=== PATIENT | female | born 1935 | race Caucasian/White ===

== ENCOUNTER 2016-08-11 14:43 | Inpatient (IN) | payer OTHER, MEDICARE ==
[2016-08-08] MEDS: SODIUM CHLOR 0.9% 1000 ML INJ 1,000 ML IV SCH (21:45)
[2016-08-11] VITALS (17 sets, daily range): BP systolic 77–116; BP diastolic 44–59; PULSE 94–105; RESP 14–30; TEMP 97.5–99.1; O2SAT 91–97
[~2016-08-11] VITALS: Ht 160 cm; Wt 78.4 kg
[~2016-08-11 14:43] MED LIST: ASPI1TAB69 PO; ATEN25TA PO; ATOR20TA15 PO; LEVEMIR SQ; LEVO.075 PO; LISI-519 PO; MAGN500T2 PO; METF1000 PO; OMEP20TA PO; ONDANSETRON HCL 4 MG/2 ML VIAL IV PUSH ONE; PHENYLEPH/NS 1000 MCG/10 ML SYR IV ONE; TRAM50TA PO
--- NOTE | 2016-08-11 14:55 | PD ---
Physical Exam Date Seen by Provider: Aug 11, 2016 Time Seen by Provider: 14:50 Narrative 80 YOWF C/O RUQ PAIN. DR MATHIS TX FOR BILE DUCT OBSTRUCTION. WORSENING SINCE FRIDAY. NO F/C. POS N/V WITH ABDOMINAL PAIN. PMD NYASIA MCCANN VS NOTED AWAITING BED PLACEMENT Data Data Last Documented VS Vital Signs Date Time Temp Pulse Resp B/P Pulse Ox O2 Delivery O2 Flow Rate FiO2 08/11/16 14:46 99.1 105 14 92/53 95 MDM Medical Record Reviewed: Yes Supervised Visit with DAMIEN: Yes Sahil Monson Aug 11, 2016 14:55
[2016-08-11] MEDS ORDERED: SODIUM CHLOR 0.9% 1000 ML INJ 1,000 ML IV ONE ×3 (15:15→16:45)
[2016-08-11] MEDS ORDERED: ONDANSETRON HCL 4 MG/2 ML VIAL IVP ONE (15:15)
[2016-08-11] MEDS ORDERED: SODIUM CHLORIDE 0.9% FLUSH 10 ML FLUSH IV FLUSH PRN (15:15)
--- NOTE | 2016-08-11 15:20 | PD ---
HPI Chief Complaint: Abdominal Pain Time Seen by Provider: 15:05 Travel History International Travel<30 days: No Contact w/Intl Traveler<30days: No Traveled to known affect area: No History of Present Illness HPI This patient complains of abdominal pain. Duration is 3 days. Symptoms are moderately severe. Location of the pain is right upper quadrant. She's had some nausea but no active vomiting or fever or diarrhea. She has history of biliary ductal obstructions requiring stenting. She has had her gallbladder removed about 8 years ago. No alleviating factors. Patient arrives critically ill. She is hypotensive with systolic in the 80s and having a lot of pain. She is jaundiced. PFSH Past Medical History Depression: Yes Heart Rhythm Problems: Yes (HEART SKIPS) Cancer: No Cardiovascular Problems: No High Cholesterol: Yes Diabetes: Yes Endocrine: Yes Genitourinary: No Hepatitis: No Hiatal Hernia: No Immune Disorder: No Musculoskeletal: No Neurologic: No Psychiatric: No Reproductive: No Respiratory: No Thyroid Disease: No Past Surgical History Abdominal Surgery: Yes (APPENDECTOMY, GALLBLADDER) AICD: No Appendectomy: Yes Body Medical Devices: RIGHT PORT Cardiac Surgery: No Cholecystectomy: Yes Ear Surgery: No Endocrine Surgery: No Eye Surgery: No Genitourinary Surgery: No Gynecologic Surgery: Yes (HYSTERECTOMY) Hysterectomy: Yes Joint Replacement: No Oral Surgery: No Pacemaker: No Social History Alcohol Use: No Tobacco Use: No Substance Use: No Allergies-Medications (Allergen,Severity, Reaction): Coded Allergies: Penicillin (Verified Allergy, Mild, 08/11/16) Reported Meds & Prescriptions Reported Meds & Active Scripts Active Reported Tramadol (Tramadol HCl) 50 Mg Tab 50 Mg PO Q8H PRN Synthroid (Levothyroxine Sodium) 75 Mcg Tab 75 Mcg PO DAILY Omeprazole 20 Mg Tab 20 Mg PO DAILY Metformin (Metformin HCl) 1,000 Mg Tab 1,000 Mg PO BIDPC With meals Magnesium Oxide 500 Mg Tab 1,000 Mg PO BID Lisinopril 5 Mg Tab 5 Mg PO DAILY Levemir Inj (Insulin Detemir) 1,000 unit/ 10 ML Vial 10 Units SQ HS Do not mix with any other Insulin. Atorvastatin (Atorvastatin Calcium) 20 Mg Tab 20 Mg PO HS Atenolol 25 Mg Tab 12.5 Mg PO DAILY Aspirin 81 Mg Tabdr 81 Mg PO DAILY Review of Systems General / Constitutional: No: Fever Eyes: No: Visual changes HENT: No: Headaches Cardiovascular: No: Chest Pain or Discomfort Respiratory: No: Shortness of Breath Gastrointestinal: Positive: Nausea, Abdominal Pain Genitourinary: No: Dysuria Musculoskeletal: No: Pain Skin: No Rash Neurologic: No: Weakness Psychiatric: No: Depression Endocrine: No: Polydipsia Hematologic/Lymphatic: No: Easy Bruising Physical Exam Narrative GENERAL: Well-nourished, well-developed patient with abdominal pain . Very hard of hearing SKIN: Focused skin assessment reveals no rash and nodules. Skin is Warm and dry. She looks jaundiced HEAD: Atraumatic. Normocephalic. EYES: Pupils equal and round. Positive scleral icterus. No injection or drainage. ENT: No nasal bleeding or discharge. Mucous membranes pink and moist. NECK: Trachea midline. No JVD. CARDIOVASCULAR: Regular rate and rhythm. No murmur appreciated. RESPIRATORY: No accessory muscle use. Clear to auscultation. Breath sounds equal bilaterally. GASTROINTESTINAL: Abdomen soft, right upper quadrant and epigastrium are tender but no rebound or guarding. Hepatic and splenic margins not palpable. MUSCULOSKELETAL: No obvious deformities. No clubbing. No cyanosis. No edema. NEUROLOGICAL: Awake and alert. No obvious cranial nerve deficits. Motor grossly within normal limits. Normal speech. PSYCHIATRIC: Appropriate mood and affect; insight and judgment normal. Data Data Last Documented VS Vital Signs Date Time Temp Pulse Resp B/P Pulse Ox O2 Delivery O2 Flow Rate FiO2 08/11/16 15:39 94 20 84/59 95 08/11/16 15:30 Room Air 08/11/16 14:46 99.1 Orders Complete Blood Count With Diff (08/11/16 15:13) Comprehensive Metabolic Panel (08/11/16 15:13) Lipase (08/11/16 15:13) Prothrombin Time / Inr (Pt) (08/11/16 15:13) Act Partial Throm Time (Ptt) (08/11/16 15:13) Iv Access Insert/Monitor (08/11/16 15:13) Ecg Monitoring (08/11/16 15:13) Oximetry (08/11/16 15:13) NPO (08/11/16 15:13) Ondansetron Inj (Zofran Inj) (08/11/16 15:15) Sodium Chloride 0.9% Flush (Ns Flush) (08/11/16 15:15) Sodium Chlor 0.9% 1000 Ml Inj (Ns 1000 M (08/11/16 15:15) Gamma Gt (Ggt) (08/11/16 15:32) Sodium Chlor 0.9% 1000 Ml Inj (Ns 1000 M (08/11/16 15:45) Ct Abd/Pel W/O Iv Contrast (08/11/16 15:13) Metronidazole 500 Mg Inj (Flagyl 500 Mg (08/11/16 16:45) Levofloxacin 750 Mg Premix Inj (Levaquin (08/11/16 16:45) Sodium Chlor 0.9% 1000 Ml Inj (Ns 1000 M (08/11/16 16:45) Norepinephrine-Dextrose Drip (Levophed-D (08/11/16 17:15) Terbutaline Inj (Brethine Inj) (08/11/16 17:15) Admit Order (Ed Use Only) (08/11/16 17:12) Labs Laboratory Tests Test 08/11/16 15:10 White Blood Count 14.2 TH/MM3 Red Blood Count 4.11 MIL/MM3 Hemoglobin 11.8 GM/DL Hematocrit 35.2 % Mean Corpuscular Volume 85.6 FL Mean Corpuscular Hemoglobin 28.8 PG Mean Corpuscular Hemoglobin 33.7 % Concent Red Cell Distribution Width 14.3 % Platelet Count 168 TH/MM3 Mean Platelet Volume 9.2 FL Neutrophils (%) (Auto) 93.2 % Lymphocytes (%) (Auto) 3.5 % Monocytes (%) (Auto) 3.2 % Eosinophils (%) (Auto) 0.0 % Basophils (%) (Auto) 0.1 % Neutrophils # (Auto) 13.2 TH/MM3 Lymphocytes # (Auto) 0.5 TH/MM3 Monocytes # (Auto) 0.4 TH/MM3 Eosinophils # (Auto) 0.0 TH/MM3 Basophils # (Auto) 0.0 TH/MM3 CBC Comment AUTO DIFF Differential Total Cells 100 Counted Neutrophils % (Manual) 68 % Band Neutrophils % 21 % Lymphocytes % 2 % Monocytes % 3 % Neutrophils # (Manual) 13.5 TH/MM3 Metamyelocytes 6 % Differential Comment FINAL DIFF MANUAL Toxic Vacuolation PRESENT Platelet Estimate NORMAL Platelet Morphology Comment NORMAL Prothrombin Time 18.1 SEC Prothromb Time International 1.6 RATIO Ratio Activated Partial 32.9 SEC Thromboplast Time Sodium Level 126 MEQ/L Potassium Level 3.3 MEQ/L Chloride Level 88 MEQ/L Carbon Dioxide Level 19.5 MEQ/L Anion Gap 19 MEQ/L Blood Urea Nitrogen 34 MG/DL Creatinine 1.78 MG/DL Estimat Glomerular Filtration 27 ML/MIN Rate Random Glucose 77 MG/DL Calcium Level 7.7 MG/DL Total Bilirubin 5.3 MG/DL Gamma Glutamyl Transpeptidase 706 U/L Aspartate Amino Transf 148 U/L (AST/SGOT) Alanine Aminotransferase 216 U/L (ALT/SGPT) Alkaline Phosphatase 357 U/L Total Protein 6.2 GM/DL Albumin 2.7 GM/DL Lipase 1487 U/L [facility] Medical Decision Making Medical Screen Exam Complete: Yes Emergency Medical Condition: Yes Medical Record Reviewed: Yes Differential Diagnosis Choledocholithiasis, hepatitis, pancreatitis Narrative Course I have reviewed the patient's electronic medical record. She was here in March 2016 for ERCP and stent removal IV placed I gave her IV Zofran and 1 L normal saline IV CBC shows leukocytosis with normal hemoglobin Metabolic profile shows multiple abnormalities including hyponatremia and hypokalemia and renal insufficiency LFTs are abnormal with elevated LFTs including elevated GGT Lipase is elevated Coagulation studies are abnormal with INR 1.6 Patient remained hypotensive after liter so I gave her a second liter bolus and she is still systolic in the 80s after that I gave her IV Flagyl and IV Levaquin given her penicillin allergy Patient is a challenging IV placement and has only one IV so I have placed a triple-lumen CENTRAL VENOUS LINE: The site was prepped with Betadine and sterilely draped. The deep vein was cannulated using normal Seldinger technique. A triple lumen central line was placed in the right internal jugular vein and secured with central line dressing. The site was sterilely dressed. The patient tolerated the procedure well. I reviewed the portable chest x-ray for line placement. I'm giving her a third liter of normal saline IV I'm starting Levophed to maintain a better systolic blood pressure given failure of IV fluid boluses to do so CT scan was done without contrast given her renal insufficiency. That showed some mild colonic thickening but nothing otherwise specific I suspect she has a choledocholithiasis as she's had this 3 times in her past Goes along with her right upper quadrant pain and jaundice and abnormal lab studies Patient is critically ill now on pressor support I paged her GI physician to discuss. I paged with his partner Dr. Mendoza I paged the client customer manager for admission and discussed with Dr. Estrada Critical Care Narrative Aggregate critical care time was 80 minutes. Time to perform other separately billable procedures was not included in the critical care time. My time did not include minutes spent treating any other patients simultaneously or on activities that did not directly contribute to the patient's treatment. The services I provided to this patient were to treat and/or prevent clinically significant deterioration that could result in: Septic shock, cardiopulmonary arrest, obstructive jaundice I provided critical care services requiring my management, as noted below: Chart data review, documentation time, medication orders and management, vital sign assessments/reviewing monitor data, ordering and reviewing lab tests, ordering and interpreting/reviewing x-rays and diagnostic studies, care of the patient and discussion of the patient with the admitting physicians. Diagnosis Primary Impression: Acute cholangitis due to calculus of bile duct with obstruction Additional Impressions: Hypotension Qualified Code: I95.9 - Hypotension, unspecified hypotension type Obstructive jaundice Bryn Augustin MD Aug 11, 2016 15:20
[2016-08-11 15:45] LABS: AUTOMATED NEUTROPHIL # 13.2 TH/MM3 (1.8-7.7); BASOPHIL % 0.1 % (0.0-2.0); HEMATOCRIT 35.2 % (35.0-46.0); LYMPH % 3.5 % (9.0-44.0); LYMPHOCYTE # 0.5 TH/MM3 (1.0-4.8); MEAN CELL VOLUME 85.6 FL (80.0-100.0); MEAN CORPUSCULAR HEMOGLOBIN 28.8 PG (27.0-34.0); MEAN CORPUSCULAR HGB CONC 33.7 % (32.0-36.0); MONO % 3.2 % (0.0-8.0); NEUT % 93.2 % (16.0-70.0); PLATELET COUNT 168 TH/MM3 (150-450); RED BLOOD COUNT 4.11 MIL/MM3 (4.00-5.30); RED CELL DISTRIBUTION WIDTH 14.3 % (11.6-17.2); WHITE BLOOD COUNT 14.2 TH/MM3 (4.0-11.0)
[2016-08-11 15:52] LABS: HEMO FLAGS AUTO DIFF
[2016-08-11 15:54] LABS: ALT (GPT) 216 U/L (10-53); ANION GAP 19 MEQ/L (5-15); AST (GOT) 148 U/L (15-37); BICARBONATE 19.5 MEQ/L (21.0-32.0); BLOOD UREA NITROGEN 34 MG/DL (7-18); CHLORIDE 88 MEQ/L (98-107); GLOMERULAR FILTRATION RATE 27 ML/MIN (>89); POTASSIUM 3.3 MEQ/L (3.5-5.1); SODIUM (NA) 126 MEQ/L (136-145)
[2016-08-11 15:56] LABS: ALKALINE PHOSPHATASE 357 U/L (45-117); TOTAL BILIRUBIN ADULT 5.3 MG/DL (0.2-1.0)
[2016-08-11 16:18] LABS: BANDS 21 % (0-6); METAMYELOCYTES 6 % (0-1); NEUTROPHIL # MANUAL DIFF 13.5 TH/MM3 (1.8-7.7); POLYS (SEG NEUTROPHILS) 68 % (16-70); WBC DIFF SAMPLE 100
[2016-08-11 16:19] LABS: PLATELET ESTIMATE SMEAR NORMAL (NORMAL); PLATELET MORPHOLOGY NORMAL (NORMAL); SCAN/DIFF FINAL DIFF MANUAL; TOXIC VACUOLATION PRESENT (NONE SEEN)
[2016-08-11 16:25] LABS: APTT (PATIENT) 32.9 SEC (24.3-30.1); INTERNATIONAL NORMALIZED RATIO 1.6 RATIO; PROTHROMBIN TIME - PATIENT 18.1 SEC (9.8-11.6)
[2016-08-11] MEDS ORDERED: metroNIDAZOLE 500 MG INJ 100 ML IV ONE (16:45)
[2016-08-11] MEDS ORDERED: LEVOFLOXACIN 750 MG PREMIX INJ 150 ML IV ONE (16:45)
--- NOTE | 2016-08-11 16:51 | RADRPT ---
EXAM DATE/TIME: 08/11/2016 16:15 [facility] COMPARISON: No previous studies available for comparison. INDICATIONS : Right lower abdomen pain with nausea, vomiting and diarrhea for three days. ORAL CONTRAST: No oral contrast ingested. RADIATION DOSE: 9.96 CTDIvol (mGy) MEDICAL HISTORY : Hypertension. Gastroesophageal reflux disease. diabetes SURGICAL HISTORY : cholecystectomy, bile duct surgery, hysterectomy, appendectomy ENCOUNTER: Initial ACUITY: 3 days PAIN SCALE: 8/10 LOCATION: Right lower quadrant TECHNIQUE: Volumetric scanning of the abdomen and pelvis was performed. Using automated exposure control and ad justment of the mA and/or kV according to patient size, radiation dose was kept as low as reasonably achievable to obtain optimal diagnostic quality images. FINDINGS: There is minimal thickening of the colon predominantly the right colon with minimal pericolonic fat s tranding most characteristic of a mild colitis. There is no bowel obstruction. A small amount of free fluid is present around the liver. There is linear atelectasis or scarring at the lung bases. No acute findings in the liver, spleen, ad renals, kidneys or pancreas. There is no adenopathy. No acute bony abnormality. CONCLUSION: Mild mural thickening of the colon especially on the right side most characteristic of a mild colitis . Small amount of free fluid around the liver. No free air. Sahil Faria MD on August 11, 2016 at 16:41 Board Certified Radiologist. This report was verified electronically.
[2016-08-11] MEDS ORDERED: TERBUTALINE INJ 1 MG/ML AMP SQ PRN ×2 (17:15→18:45)
[2016-08-11] MEDS ORDERED: NOREPINEPHRINE-DEXTROSE DRIP 250 ML IV SCH ×2 (17:15→18:45)
[2016-08-11] MEDS ORDERED: NOREPINEPHRINE 4 MG/4 ML AMP ONE (17:17)
--- NOTE | 2016-08-11 18:00 | RADRPT ---
EXAM DATE/TIME: 08/11/2016 17:12 [facility] COMPARISON: No previous studies available for comparison. INDICATIONS : Evaluate central line placement MEDICAL HISTORY : Gastroesophageal reflux disease. Hypertension Diabetes mellitus type II. SURGICAL HISTORY : cholecystectomy, bile duct surgery, hysterectomy, appendectomy ENCOUNTER: Initial ACUITY: 1 day PAIN SCORE: 8/10 LOCATION: chest FINDINGS: A single view of the chest demonstrates right central line in right atrium. Minimal basilar atelectas is. No effusion. No pneumothorax. CONCLUSION: 1. Minimal basilar atelectasis. No effusion or pneumothorax. Sahil Faria MD on August 11, 2016 at 17:58 Board Certified Radiologist. This report was verified electronically.
[2016-08-11] MEDS ORDERED: CHLORHEXIDINE GLUCONATE 2 % 1 PACK (2 CLOTHS) TOP PRN (18:45)
[2016-08-11] MEDS ORDERED: MISCELLANEOUS NURSING INFORMATION XX SCH (18:45)
[2016-08-11] MEDS ORDERED: VANCOMYCIN INJ 1,000 MG in SODIUM CHLOR 0.9% 250 ML INJ 250 ML IV ONE (19:00)
[2016-08-11] MEDS ORDERED: DEXTROSE 50% IN WATER 50 ML VIAL(D50) IV PRN (19:15)
[2016-08-11] MEDS ORDERED: GLUCAGON 1 MG/ML VIAL IM/SQ PRN (19:15)
[2016-08-11] MEDS ORDERED: RESP: ALBUTEROL 2.5 MG/IPRATROPIUM 0.5 MG NEB (PRN) NEB (19:15)
[2016-08-11] MEDS ORDERED: VASOPRESSIN INJ 20 UNITS/ML VIAL ONE (19:20)
--- NOTE | 2016-08-11 19:51 | HHI.HP ---
HPI Service Critical Care Medicine Primary Care Physician Rafael Mejia MD Admission Diagnosis cholangitis,choledocholithiasis,persistent hypotension Diagnosis: Chief Complaint: Abdominal pain Travel History International Travel<30 Days: No Contact w/Intl Traveler <30 Da: No Traveled to Known Affected Are: No Sepsis Criteria SIRS Criteria (2 or more): Heart rate over 90, WBC > 16432, < 4000 or > 10% bands Sepsis Criteria (SIRS+source): Infect source susp/known Severe Sepsis (+one): Hypotension Septic Shock Criteria: Unresponsive to 30ml/kg fluid bolus Criteria Outcome: Meets septic shock criteria History of Present Illness HPI 80-year-old female with a past medical history significant for cholecystectomy 8 years ago, recurrent CBD stones/obstruction requiring ERCPs/stenting with stent removal done in March [address] Covington and CBD stone fragments were removed at that time. Patient now presents with abdominal pain going on for about 3 weeks which increased in severity over the last 3 days more so in the right upper quadrant along with nausea vomiting. Patient appeared jaundiced in the ER and was noted to have elevated LFTs and was hypotensive with systolic blood pressure in the 80s. She received 3 L of normal saline bolus and was started on Levophed for pressor support after a right IJ central line was placed by ER physician. She was diagnosed to be septic most likely secondary to cholangitis. She did have an elevated lipase as well. Patient was accepted for admission by critical care medicine service. When I came to evaluate patient around 6:15 PM she was laying in the ER stretcher complaining of significant abdominal pain 10 out of 10 in intensity. She had not received any pain medication so far. She had finished her third liter of normal saline and was on Levophed 2 mics per minute. Levaquin infusion was just getting completed and Flagyl infusion was going to be started next. I ordered fentanyl 50 mics IV started with which she had some relief of her abdominal pain. She has been having bowel movements according to her which are brown in color with no fresh blood or melena noted. History PFSH Past Medical History Depression: Yes Heart Rhythm Problems: Yes (HEART SKIPS) Cancer: No Cardiovascular Problems: No High Cholesterol: Yes Diabetes: Yes Endocrine: Yes Genitourinary: No Hepatitis: No Hiatal Hernia: No Immune Disorder: No Musculoskeletal: No Neurologic: No Psychiatric: No Reproductive: No Respiratory: No Thyroid Disease: No GI/Liver: CBD stones status post multiple ERCPs with stenting and stone removal last one being in March 2016 when her CBD stent was removed and the sweep was performed for a filling defect with removal of CBD stone fragments by Dr. Covington Past Surgical History Abdominal Surgery: Yes (APPENDECTOMY, GALLBLADDER) AICD: No Appendectomy: Yes Body Medical Devices: right port (not present currently) Cardiac Surgery: No Cholecystectomy: Yes Ear Surgery: No Endocrine Surgery: No Eye Surgery: No Genitourinary Surgery: No Gynecologic Surgery: Yes (HYSTERECTOMY) Hysterectomy: Yes Joint Replacement: No Oral Surgery: No Pacemaker: No Social History Alcohol Use: No Tobacco Use: No Substance Use: No Allergies-Medications Allergies-Medications (Allergen,Severity, Reaction): Coded Allergies: Penicillin (Verified Allergy, Mild, 08/11/16) Reported Meds & Prescriptions Reported Meds & Active Scripts Active Reported Tramadol (Tramadol HCl) 50 Mg Tab 50 Mg PO Q8H PRN Synthroid (Levothyroxine Sodium) 75 Mcg Tab 75 Mcg PO DAILY Omeprazole 20 Mg Tab 20 Mg PO DAILY Metformin (Metformin HCl) 1,000 Mg Tab 1,000 Mg PO BIDPC With meals Magnesium Oxide 500 Mg Tab 1,000 Mg PO BID Lisinopril 5 Mg Tab 5 Mg PO DAILY Levemir Inj (Insulin Detemir) 1,000 unit/ 10 ML Vial 10 Units SQ HS Do not mix with any other Insulin. Atorvastatin (Atorvastatin Calcium) 20 Mg Tab 20 Mg PO HS Atenolol 25 Mg Tab 12.5 Mg PO DAILY Aspirin 81 Mg Tabdr 81 Mg PO DAILY ROS Review of Systems General / Constitutional: Positive: Chills, No: Fever Eyes: No: Visual changes HENT: No: Headaches Cardiovascular: No: Chest Pain or Discomfort Respiratory: No: Shortness of Breath Gastrointestinal: Positive: Nausea, Abdominal Pain Genitourinary: No: Dysuria Musculoskeletal: No: Pain Skin: No Rash Neurologic: No: Weakness Psychiatric: No: Depression Endocrine: No: Polydipsia Hematologic/Lymphatic: No: Easy Bruising Physical Exam Vital Signs Vital Signs Date Time Temp Pulse Resp B/P Pulse Ox O2 Delivery O2 Flow Rate FiO2 08/11/16 19:00 104 20 109/55 97 Nasal Cannula 3 08/11/16 17:45 104 20 105/55 96 08/11/16 17:30 104 20 96/55 96 08/11/16 17:15 98 20 90/51 96 Room Air 08/11/16 17:00 95 20 89/59 96 08/11/16 16:30 96 20 88/51 96 08/11/16 16:00 98 87/49 96 08/11/16 15:45 96 20 77/46 93 08/11/16 15:39 94 20 84/59 95 08/11/16 15:30 96 Room Air 08/11/16 14:46 99.1 105 14 92/53 95 Physical Exam Narrative GENERAL: Well-nourished, well-developed patient with abdominal pain . Very hard of hearing SKIN: Focused skin assessment reveals no rash and nodules. Skin is Warm and dry. She looks jaundiced HEAD: Atraumatic. Normocephalic. EYES: Pupils equal and round. Positive scleral icterus. No injection or drainage. ENT: No nasal bleeding or discharge. Mucous membranes pink and moist. NECK: Trachea midline. No JVD. CARDIOVASCULAR: Regular rate and rhythm. No murmur appreciated. RESPIRATORY: No accessory muscle use. Clear to auscultation. Breath sounds equal bilaterally. GASTROINTESTINAL: Abdomen soft, right upper quadrant and epigastrium are tender but no rebound or guarding. Patient also has a tenderness in the lower abdomen without guarding. Hepatic and splenic margins not palpable. MUSCULOSKELETAL: No obvious deformities. No clubbing. No cyanosis. No edema. NEUROLOGICAL: Awake and alert. No obvious cranial nerve deficits. Motor grossly within normal limits. Normal speech. PSYCHIATRIC: Appropriate mood and affect; insight and judgment normal. Laboratory Laboratory Tests Test 08/11/16 15:10 White Blood Count 14.2 Red Blood Count 4.11 Hemoglobin 11.8 Hematocrit 35.2 Mean Corpuscular Volume 85.6 Mean Corpuscular Hemoglobin 28.8 Mean Corpuscular Hemoglobin 33.7 Concent Red Cell Distribution Width 14.3 Platelet Count 168 Mean Platelet Volume 9.2 Neutrophils (%) (Auto) 93.2 Lymphocytes (%) (Auto) 3.5 Monocytes (%) (Auto) 3.2 Eosinophils (%) (Auto) 0.0 Basophils (%) (Auto) 0.1 Neutrophils # (Auto) 13.2 Lymphocytes # (Auto) 0.5 Monocytes # (Auto) 0.4 Eosinophils # (Auto) 0.0 Basophils # (Auto) 0.0 CBC Comment AUTO DIFF Differential Total Cells 100 Counted Neutrophils % (Manual) 68 Band Neutrophils % 21 Lymphocytes % 2 Monocytes % 3 Neutrophils # (Manual) 13.5 Metamyelocytes 6 Differential Comment FINAL DIFF MANUAL Toxic Vacuolation PRESENT Platelet Estimate NORMAL Platelet Morphology Comment NORMAL Prothrombin Time 18.1 Prothromb Time International 1.6 Ratio Activated Partial 32.9 Thromboplast Time Sodium Level 126 Potassium Level 3.3 Chloride Level 88 Carbon Dioxide Level 19.5 Anion Gap 19 Blood Urea Nitrogen 34 Creatinine 1.78 Estimat Glomerular Filtration 27 Rate Random Glucose 77 Calcium Level 7.7 Total Bilirubin 5.3 Gamma Glutamyl Transpeptidase 706 Aspartate Amino Transf 148 (AST/SGOT) Alanine Aminotransferase 216 (ALT/SGPT) Alkaline Phosphatase 357 Total Protein 6.2 Albumin 2.7 Lipase 1487 Result Diagram: 08/11/16 1510 08/11/16 1510 Imaging Last Impressions Abdomen/Pelvis CT 08/11/16 1513 Signed Impressions: Service Date/Time: Thursday, August 11, 2016 16:15 - CONCLUSION: Mild mural thickening of the colon especially on the right side most characteristic of a mild colitis. Small amount of free fluid around the liver. No free air. Sahil Faria MD Chest X-Ray 08/11/16 0000 Signed Impressions: Service Date/Time: Thursday, August 11, 2016 17:12 - CONCLUSION: 1. Minimal basilar atelectasis. No effusion or pneumothorax. 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 Follow neuro status. Cardiovascular: Status post 3 L normal saline. Continue IV fluids. Levophed for pressor support. Lactic acid sepsis protocol ordered by me to trend lactic acid. Pulmonary: Supplemental O2 as needed, bronchodilators when necessary for wheezing. GI/liver: Keep patient nothing by mouth. GI consult Dr. Trejo to decide regarding ERCP and further evaluation of possible colitis. He has already spoken with Dr. Estrada earlier and is aware of the patient. Follow LFTs. Lipase. Renal/: IV hydration, strict intake output, monitor and replete electro lites , follow BUN/creatinine. ID: Continue IV Levaquin and Flagyl. Vancomycin 1 g IV 1 dose. ID consult requested for septic shock suspected cholangitis in this diabetic patient. Heme: Follow CBC and coags. Endocrine: SSI for glycemic control. Resume Synthroid tomorrow if GI clears by mouth intake. Prophylaxis: PPI/SCDs. Hold subcutaneous heparin or Lovenox as patient may be going for ERCP. Code Status full code Discussed Condition With Discussed with Dr. Augustin(ER physician). Discussed current clinical status and plan of care with patient's at bedside who voiced understanding and was agreeable. Dr. Estrada discussed case earlier with Dr. Cam and informed him that patient can undergo ERCP if needed. Condition critical. Time spent on critical care excluding procedures 70 minutes Chandan Fox MD Aug 11, 2016 19:51
[2016-08-11] MEDS: SODIUM CHLOR 0.9% 1000 ML INJ 1,000 ML IV SCH (20:04)
[2016-08-11] MEDS: PANTOPRAZOLE SODIUM 40 MG VIAL IV SCH (20:04)
[2016-08-11] MEDS: SODIUM CHLORIDE 0.9% FLUSH 10 ML FLUSH IV FLUSH SCH (20:06)
[2016-08-11] MEDS: HYDROmorphone HCL PF 1 MG/ML VIAL IV PUSH PRN (20:14)
[2016-08-11] MEDS ORDERED: PROPOFOL 200 MG/20 ML AMP IV ONE (21:45)
--- NOTE | 2016-08-11 22:04 | RADRPT ---
EXAM DATE/TIME: 08/11/2016 20:55 [facility] COMPARISON: GI LAB ERCP, March 19, 2016, 11:28. INDICATIONS : Obstruction. FLUORO TIME: 2 minutes IMAGE COUNT: 3 CONTRAST: Instilled by Ordering Physician MEDICAL HISTORY : None. SURGICAL HISTORY : cholecystectomy, bile duct surgery, hysterectomy, appendectomy ENCOUNTER: Initial ACUITY: 1 day PAIN SCORE: Non-responsive. LOCATION: FINDINGS: An ERCP was performed by the ordering physician. The images demonstrate cannulation of the common bile duct. There is very little contrast to assess f or filling defects on these few images. CONCLUSION: ERCP as above. Sahil Faria MD on August 11, 2016 at 22:02 Board Certified Radiologist. This report was verified electronically.
--- NOTE | 2016-08-11 22:19 | MB ---
cc: AROLDO SIMMONS M.D. DATE OF CONSULTATION 08/11/2016 DATE OF 1935 REASON FOR REFERRAL Pancreatitis, elevated liver function test, possible cholangitis. HISTORY OF THE PRESENT ILLNESS Thank you for the consultation. This is an 80-year-old lady with known history of choledocholithiasis and pancreatitis. She had multiple episodes of stone in the common bile duct requiring ERCP with removal of stones. The patient's last procedure was in March 2016. The patient stated that she had abdominal pain on and off for the last 3 weeks getting worse in the last 3 days and then today she started having severe pain, unbearable in the right upper quadrant radiating to the midepigastric area with some jaundice. The patient denied any vomiting but she had some nausea. The patient came to the emergency room and found to have significant elevation of her liver function tests, and she seems to be septic with low blood pressure, high white blood cells and tachycardia. PAST SURGICAL HISTORY 1. Appendectomy. 2. Cholecystectomy. 3. Hysterectomy. SOCIAL HISTORY Negative for tobacco, drug or alcohol. ALLERGIES PENICILLIN. MEDICATIONS Reviewed in the chart. PAST MEDICAL HISTORY Significant for: 1. Arrhythmia. 2. Depression. 3. High cholesterol. 4. Common bile duct stones in the past, multiple ERCP with stenting and stone removal, the last one 2015. REVIEW OF SYSTEMS All 12-point negative except HPI. PHYSICAL EXAMINATION GENERAL: Alert, oriented with mild distress because of pain. VITAL SIGNS: The patient has low grade temperature 99.1. She has tachycardia and on presentation to the ER she had blood pressure of 84/59, now it is 110/60. HEENT: Pupils are round and reactive to light. She has clear icterus. NECK: Supple. CHEST: Clear to auscultation and percussion. CARDIOVASCULAR: Regular rate and rhythm. No murmur or gallop. ABDOMEN: Severe tenderness with rebound in the right upper quadrant and midepigastric area. Very tender throughout the abdomen. Positive bowel sounds but decreased. I could not appreciate hepatosplenomegaly. EXTREMITIES: No edema, clubbing or cyanosis. NEUROLOGIC: Alert, oriented with normal muscle function. PSYCHOLOGIC: Appropriate but she seems to be a little bit distressed. LABORATORY DATA Sodium 126, potassium 3.3, BUN 34, creatinine 1.78. This is new since last time where her creatinine was 0.6. Calcium 7.7, total bilirubin 5.3, AST 148, ALT 216, alk phos 357, lipase 1487. White count 14.2, hemoglobin 11.8, platelets 168. INR 1.6. IMAGING Abdominal CT scan showed mild mural thickening of the colon mostly on the right side characteristic for mild colitis and small fluid around the liver. No free air. ASSESSMENT/PLAN An 80-year-old lady with what looks like acute cholangitis with possible sepsis, elevated liver function tests, elevated white counts and pancreatitis most likely common bile duct stone induced. I recommend doing an urgent ERCP. We are going to activate the team and do this today. Will intubate the patient. We will start antibiotics. The patient already on pressors to help with her blood pressure. The patient has high risk procedure but we need to do it because of the above. We will follow up with you. Further plan depends on the findings. MD GEORGINA Salazar/ZULMA /8:41 PM /10:08 PM
[2016-08-11] MEDS: INSULIN ASPART SUPPLEMENTAL SCALE SQ SCH (23:08)
[2016-08-11 23:36] LABS: LACTIC ACID GHOST NOT REPORTABLE
[2016-08-12] VITALS (13 sets, daily range): BP systolic 97–130; BP diastolic 45–62; PULSE 84–149; RESP 14–20; TEMP 97.8–98.3; O2SAT 94–96
[2016-08-12 00:06] LABS: BICARBONATE 19.5 MEQ/L (21.0-32.0); CALCIUM-PROTEIN CORRECTED 7.5 MG/DL (8.5-10.1); POTASSIUM 3.6 MEQ/L (3.5-5.1); TOTAL BILIRUBIN ADULT 3.6 MG/DL (0.2-1.0)
[2016-08-12] MEDS: CHLORHEXIDINE GLUCONATE 2 % 1 PACK (2 CLOTHS) TOP SCH (00:19)
[2016-08-12] MEDS: HYDROmorphone HCL PF 1 MG/ML VIAL IV PUSH PRN ×3 (00:19→22:09)
[2016-08-12] MEDS: metroNIDAZOLE 500 MG INJ 100 ML IV SCH ×3 (00:19→17:25)
[2016-08-12 04:41] LABS: AUTOMATED NEUTROPHIL # 16.2 TH/MM3 (1.8-7.7); EOSINOPHIL % 19.1 % (0.0-4.0); HEMATOCRIT 29.1 % (35.0-46.0); LYMPHOCYTE # 0.4 TH/MM3 (1.0-4.8); MEAN CELL VOLUME 85.2 FL (80.0-100.0); MEAN CORPUSCULAR HEMOGLOBIN 29.9 PG (27.0-34.0); MEAN CORPUSCULAR HGB CONC 35.1 % (32.0-36.0); MONO % 2.3 % (0.0-8.0); NEUT % 76.6 % (16.0-70.0); PLATELET COUNT 153 TH/MM3 (150-450); RED BLOOD COUNT 3.42 MIL/MM3 (4.00-5.30); RED CELL DISTRIBUTION WIDTH 14.3 % (11.6-17.2); WHITE BLOOD COUNT 21.2 TH/MM3 (4.0-11.0)
[2016-08-12 04:48] LABS: HEMO FLAGS AUTO DIFF
[2016-08-12 05:07] LABS: CALCIUM-PROTEIN CORRECTED 7.5 MG/DL (8.5-10.1); POTASSIUM 4.1 MEQ/L (3.5-5.1)
[2016-08-12] MEDS: INSULIN ASPART SUPPLEMENTAL SCALE SQ SCH ×4 (06:00→23:42)
[2016-08-12 06:07] LABS: BACTERIA, URINE RARE /hpf; BLOOD, URINE TRACE (NEG); GLUCOSE,URINE NEG (NEG); GRANULAR CAST, URINE 2 /lpf; HYALINE CAST, URINE 1 /lpf (RARE); KETONE, URINE NEG (NEG); MUCUS URINE FEW /lpf (OCC); NITRITE,URINE NEG (NEG); SQUAMOUS EPITHELIAL CELL URINE <1 /hpf (0-5); URINE COLOR YELLOW (YELLW/STRAW)
[2016-08-12 06:09] LABS: COMMENT (UR) CATH-CULTURE IND; CULTURE IF INDICATED CATH CULTURE IND
[2016-08-12 06:55] LABS: BANDS 33 % (0-6); METAMYELOCYTES 2 % (0-1); MYELOCYTES 1 % (0-0); NEUTROPHIL # MANUAL DIFF 20.4 TH/MM3 (1.8-7.7); POLYS (SEG NEUTROPHILS) 60 % (16-70); WBC DIFF SAMPLE 100
[2016-08-12 06:56] LABS: DOHLE BODIES PRESENT (NONE SEEN); TOXIC VACUOLATION PRESENT (NONE SEEN)
[2016-08-12 06:58] LABS: PLATELET ESTIMATE SMEAR NORMAL (NORMAL); PLATELET MORPHOLOGY NORMAL (NORMAL); SCAN/DIFF FINAL DIFF MANUAL
[2016-08-12] MEDS: PANTOPRAZOLE SODIUM 40 MG VIAL IV SCH (08:53)
[2016-08-12] MEDS: SODIUM CHLORIDE 0.9% FLUSH 10 ML FLUSH IV FLUSH SCH ×2 (08:54→22:03)
--- NOTE | 2016-08-12 09:43 | HHI.GIFU ---
Subjective Remarks Resting in bed. States her pain is much improved, but still with significant tenderness on exam. No n/v. Afebrile. Objective Vitals I&O Vital Signs Date Time Temp Pulse Resp B/P Pulse Ox O2 Delivery O2 Flow Rate FiO2 08/12/16 07:00 94 Nasal Cannula 2.00 08/12/16 06:00 88 08/12/16 04:00 91 08/12/16 04:00 98.2 91 15 105/55 96 108/48 08/12/16 02:00 95 Nasal Cannula 3.00 08/12/16 02:00 104 08/12/16 00:00 98.0 104 14 130/62 94 118/45 08/12/16 00:00 104 08/11/16 22:30 97.5 103 30 106/53 91 93/44 08/11/16 22:15 97.6 101 16 94/49 94 Nasal Cannula 3 110/43 08/11/16 22:00 102 16 93/49 94 Nasal Cannula 3 89/45 08/11/16 21:45 102 16 88/42 99 Nasal Cannula 3 100/42 08/11/16 21:35 98.2 109 15 92/46 98 Simple Mask 10 99/44 08/11/16 20:00 101 18 115/59 97 Nasal Cannula 3 08/11/16 19:45 101 18 116/59 97 Nasal Cannula 3 08/11/16 19:30 101 18 110/54 97 Nasal Cannula 3 08/11/16 19:15 104 18 109/54 97 Nasal Cannula 3 08/11/16 19:00 97 Nasal Cannula 3.00 08/11/16 19:00 104 20 109/55 97 Nasal Cannula 3 08/11/16 17:45 104 20 105/55 96 08/11/16 17:30 104 20 96/55 96 08/11/16 17:15 98 20 90/51 96 Room Air 08/11/16 17:00 95 20 89/59 96 08/11/16 16:30 96 20 88/51 96 08/11/16 16:00 98 87/49 96 08/11/16 15:45 96 20 77/46 93 08/11/16 15:39 94 20 84/59 95 08/11/16 15:30 96 Room Air 08/11/16 14:46 99.1 105 14 92/53 95 I/O 08/11/16 08/11/16 08/11/16 08/12/16 08/12/16 08/12/16 07:00 15:00 23:00 07:00 15:00 23:00 Intake Total 1350 ml 1122 ml Output Total 180 ml 550 ml Balance 1170 ml 572 ml Intake Oral 0 ml IV Total 300 ml 1122 ml Other 1050 ml Output Urine Total 175 ml 550 ml Estimated Blood Loss 5 ml Other 0 ml # Bowel Movements 0 Laboratory Laboratory Tests Test 08/11/16 08/11/16 08/11/16 08/11/16 15:10 19:55 22:30 23:15 White Blood Count 14.2 Red Blood Count 4.11 Hemoglobin 11.8 Hematocrit 35.2 Mean Corpuscular Volume 85.6 Mean Corpuscular Hemoglobin 28.8 Mean Corpuscular Hemoglobin 33.7 Concent Red Cell Distribution Width 14.3 Platelet Count 168 Mean Platelet Volume 9.2 Neutrophils (%) (Auto) 93.2 Lymphocytes (%) (Auto) 3.5 Monocytes (%) (Auto) 3.2 Eosinophils (%) (Auto) 0.0 Basophils (%) (Auto) 0.1 Neutrophils # (Auto) 13.2 Lymphocytes # (Auto) 0.5 Monocytes # (Auto) 0.4 Eosinophils # (Auto) 0.0 Basophils # (Auto) 0.0 CBC Comment AUTO DIFF Differential Total Cells 100 Counted Neutrophils % (Manual) 68 Band Neutrophils % 21 Lymphocytes % 2 Monocytes % 3 Neutrophils # (Manual) 13.5 Metamyelocytes 6 Differential Comment FINAL DIFF MANUAL Toxic Vacuolation PRESENT Platelet Estimate NORMAL Platelet Morphology Comment NORMAL Prothrombin Time 18.1 Prothromb Time International 1.6 Ratio Activated Partial 32.9 Thromboplast Time Sodium Level 126 130 Potassium Level 3.3 3.6 Chloride Level 88 96 Carbon Dioxide Level 19.5 19.5 Anion Gap 19 15 Blood Urea Nitrogen 34 32 Creatinine 1.78 1.40 Estimat Glomerular Filtration 27 36 Rate Random Glucose 77 108 Calcium Level 7.7 6.4 Total Bilirubin 5.3 3.6 Gamma Glutamyl Transpeptidase 706 Aspartate Amino Transf 148 91 (AST/SGOT) Alanine Aminotransferase 216 154 (ALT/SGPT) Alkaline Phosphatase 357 199 Total Protein 6.2 4.9 Albumin 2.7 2.1 Lipase 1487 Lactic Acid Level 4.1 Nasal Screen MRSA (PCR) NEGATIVE Protein Corrected Calcium 7.5 Test 08/11/16 08/12/16 08/12/16 23:44 03:22 05:15 Lactic Acid Level 2.7 White Blood Count 21.2 Red Blood Count 3.42 Hemoglobin 10.2 Hematocrit 29.1 Mean Corpuscular Volume 85.2 Mean Corpuscular Hemoglobin 29.9 Mean Corpuscular Hemoglobin 35.1 Concent Red Cell Distribution Width 14.3 Platelet Count 153 Mean Platelet Volume 9.5 Neutrophils (%) (Auto) 76.6 Lymphocytes (%) (Auto) 2.0 Monocytes (%) (Auto) 2.3 Eosinophils (%) (Auto) 19.1 Basophils (%) (Auto) 0.0 Neutrophils # (Auto) 16.2 Lymphocytes # (Auto) 0.4 Monocytes # (Auto) 0.5 Eosinophils # (Auto) 4.0 Basophils # (Auto) 0.0 CBC Comment AUTO DIFF Differential Total Cells 100 Counted Neutrophils % (Manual) 60 Band Neutrophils % 33 Lymphocytes % 2 Monocytes % 2 Neutrophils # (Manual) 20.4 Metamyelocytes 2 Myelocytes 1 Differential Comment FINAL DIFF MANUAL Toxic Vacuolation PRESENT Dohle Bodies PRESENT Platelet Estimate NORMAL Platelet Morphology Comment NORMAL Red Cell Morphology Comment NORMAL Sodium Level 130 Potassium Level 4.1 Chloride Level 97 Carbon Dioxide Level 20.0 Anion Gap 13 Blood Urea Nitrogen 33 Creatinine 1.40 Estimat Glomerular Filtration 36 Rate Random Glucose 128 Calcium Level 6.5 Protein Corrected Calcium 7.5 Total Bilirubin 3.0 Aspartate Amino Transf 78 (AST/SGOT) Alanine Aminotransferase 145 (ALT/SGPT) Alkaline Phosphatase 191 Total Protein 5.0 Albumin 2.1 Lipase 452 Urine Color YELLOW Urine Turbidity HAZY Urine pH 5.0 Urine Specific [place] 1.007 Urine Protein NEG Urine Glucose (UA) NEG Urine Ketones NEG Urine Occult Blood TRACE Urine Nitrite NEG Urine Bilirubin NEG Urine Urobilinogen LESS THAN 2.0 Urine Leukocyte Esterase NEG Urine RBC 1 Urine WBC 3 Urine Squamous Epithelial <1 Cells Urine Amorphous Sediment RARE Urine Bacteria RARE Urine Hyaline Casts 1 Urine Granular Casts 2 Urine Mucus FEW Microscopic Urinalysis Comment CATH-CULTURE IND Date/Time Procedure Status Source Growth 08/12/16 05:15 Urine Culture Received Urine Catheterized Urine Pending 08/11/16 21:58 Aerobic Blood Culture Received Blood Peripheral Pending 08/11/16 21:58 Anaerobic Blood Culture Received Blood Peripheral Pending Imaging Last Impressions Abdomen/Pelvis CT 08/11/16 1513 Signed Impressions: Service Date/Time: Thursday, August 11, 2016 16:15 - CONCLUSION: Mild mural thickening of the colon especially on the right side most characteristic of a mild colitis. Small amount of free fluid around the liver. No free air. Sahil Faria MD GI Procedure 08/11/16 0000 Signed Impressions: Service Date/Time: Thursday, August 11, 2016 20:55 - CONCLUSION: ERCP as above. Sahil Faria MD Chest X-Ray 08/11/16 0000 Signed Impressions: Service Date/Time: Thursday, August 11, 2016 17:12 - CONCLUSION: 1. Minimal basilar atelectasis. No effusion or pneumothorax. Sahil Faria MD Physical Exam HEENT: Normocephalic; atraumatic; no jaundice. CHEST: CTA CARDIAC: RRR, on vasopressors ABDOMEN: Soft, diffuse tenderness on exam, no hepatosplenomegaly; bowel sounds are present in all four quadrants. EXTREMITIES: No clubbing, cyanosis, or edema. SKIN: Normal; no rash; no jaundice. DEALER CARD ROOM: No focal deficits; alert and oriented times three. Assessment and Plan Plan ASSESSMENT: - Cholangitis, Choledocholithiasis. Abdomen/Pelvis CT (08/11/16)----> Mild mural thickening of the colon especially on the right side most characteristic of a mild colitis. Small amount of free fluid around the liver. No free air. S/ P ERCP with sphincterotomy, stone removal, stent placement (08/11/16)----> CBD Dilation, stone, puss, prominent ampulla. WBC went up to 21.2 and LFTs remains elevated, T. Bili 3.0, AST 78, ALT 145, Alk Phosph 191. Lipase improved today 452. Clinically, much improved- although still with diffuse tenderness on exam. Will start clears and repeat CBC, LFT, Lipase in am. Levaquin, Flagyl. - Elevated LFTs secondary to above. S/P ERCP as above. Still high, but clinically improved. Will repeat in am. - Pancreatitis, likely related to choledocholithiasis. Pt with hx of cholecystectomy. S/P ERCP as above. - Sepsis/Leukocytosis. Pt with worsening WBC today. Levaquin, Flagyl. On vasopressors. - ? Colitis, ascending colon on CT. Levaquin, Flagyl. Check stool for CDiff, C /s. - ALKA with electrolyte abnormalities. Per CCM - DM, Hypothyroidism per primary. Per CCM PLAN: - Clear liquids - Cont. Flagyl/Levaquin - Cont. PPI - Cont. IVF - Send stool for CDiff, C/S - CBC, CMP, Lipase in am - Supportive care - Further recommendations to follow based on results of above - Pt seen and examined by Dr. Cam and myself and this note is written on his behalf Massiel Shahid Aug 12, 2016 09:43
[2016-08-12] MEDS: SODIUM CHLOR 0.9% 1000 ML INJ 1,000 ML IV SCH ×2 (11:00→18:25)
--- NOTE | 2016-08-12 14:52 | HHI.CCPN ---
Subjective Remarks/Hospital Course 80-year-old female with a past medical history significant for cholecystectomy 8 years ago, recurrent CBD stones/obstruction requiring ERCPs/stenting with stent removal done in March [address] C[place]ton and CBD stone fragments were removed at that time. Patient now presents with abdominal pain going on for about 3 weeks which increased in severity over the last 3 days more so in the right upper quadrant along with nausea vomiting. Patient appeared jaundiced in the ER and was noted to have elevated LFTs and was hypotensive with systolic blood pressure in the 80s. She received 3 L of normal saline bolus and was started on Levophed for pressor support after a right IJ central line was placed by ER physician. She was diagnosed to be septic most likely secondary to cholangitis. She did have an elevated lipase as well. Patient was accepted for admission by critical care medicine service. When I came to evaluate patient around 6:15 PM she was laying in the ER stretcher complaining of significant abdominal pain 10 out of 10 in intensity. She had not received any pain medication so far. She had finished her third liter of normal saline and was on Levophed 2 mics per minute. Levaquin infusion was just getting completed and Flagyl infusion was going to be started next. I ordered fentanyl 50 mics IV started with which she had some relief of her abdominal pain. She has been having bowel movements according to her which are brown in color with no fresh blood or melena noted. Subjective 08/12: Afebrile.The patient is status post ERCP with sphincterotomy and stone removal last evening and stent placement. Biopsy also obtained for thickened ampulla of Vater to rule out malignant process. Patient's pain well to control this a.m. reports it is 08/12. Objective Vital Signs Date Time Temp Pulse Resp B/P Pulse Ox O2 Delivery O2 Flow Rate FiO2 08/12/16 12:00 98.3 84 16 99/54 96 97/48 08/12/16 07:00 Nasal Cannula 2.00 Intake and Output 08/11/16 08/11/16 08/12/16 08:00 16:00 00:00 Intake Total 1350 ml Output Total 180 ml Balance 1170 ml Result Diagram: 08/12/16 0322 08/12/16 0322 Imaging Last Impressions Abdomen/Pelvis CT 08/11/16 5273 Signed Impressions: Service Date/Time: Thursday, August 11, 2016 16:15 - CONCLUSION: Mild mural thickening of the colon especially on the right side most characteristic of a mild colitis. Small amount of free fluid around the liver. No free air. Sahil Faria MD Chest X-Ray 08/11/16 0000 Signed Impressions: Service Date/Time: Thursday, August 11, 2016 17:12 - CONCLUSION: 1. Minimal basilar atelectasis. No effusion or pneumothorax. Sahil Faria MD Objective Remarks Narrative GENERAL: Well-nourished, well-developed elderly female . Hard of hearing SKIN: Focused skin assessment reveals no rash and nodules. Skin is Warm and dry. She looks jaundiced HEAD: Atraumatic. Normocephalic. EYES: Pupils equal and round. Positive scleral icterus. No injection or drainage. ENT: No nasal bleeding or discharge. Mucous membranes pink and moist. NECK: Trachea midline. No JVD. CARDIOVASCULAR: Regular rate and rhythm. No murmur appreciated. RESPIRATORY: No accessory muscle use. Clear to auscultation. Breath sounds equal bilaterally. GASTROINTESTINAL: Abdomen soft, right upper quadrant and epigastrium are tender but no rebound or guarding. Patient also has a mild tenderness in the lower abdomen without guarding. Hepatic and splenic margins not palpable. MUSCULOSKELETAL: No obvious deformities. No clubbing. No cyanosis. No edema. NEUROLOGICAL: Awake and alert. No obvious cranial nerve deficits. Motor grossly within normal limits. Normal speech. PSYCHIATRIC: Appropriate mood and affect; insight and judgment normal. A/P Assessment and Plan 80-year-old female with: Abdominal pain Cholangitis Choledocholithiasis S/P ERCP with sphincterotomy and stone removal, stent placement Septic shock Acute pancreatitis probably secondary to CBD stones Elevated LFTs Hyperbilirubinemia Possible mild colitis in the ascending colon(based on CT result) Bandemia Leukocytosis Diabetes mellitus AK I History of recurrent CBD stones/obstruction status post previous ERCP and stenting with stent removal in March 2016 History of hypothyroidism Plan: Neuro: Fentanyl when necessary for pain. Follow neuro status. Cardiovascular: Status post 3 L normal saline. Continue IV fluids. Levophed for pressor support. Lactic acid sepsis protocol ordered by me to trend lactic acid. Pulmonary: Supplemental O2 as needed, bronchodilators when necessary for wheezing. GI/liver: Advanced to clear liquid diet. GI consult Dr. Cam following. Follow LFTs, Lipase in a.m., follow-up pathology report Renal/: IV hydration, strict intake output, monitor and replete electrolytes, follow BUN/creatinine. ID: Continue IV Levaquin and Flagyl. Vancomycin 1 g IV 1 dose. ID consulted requested for septic shock suspected cholangitis in this diabetic patient. Heme: Follow CBC and coags. Endocrine: SSI for glycemic control. Resume Synthroid tomorrow if GI clears by mouth intake. Prophylaxis: PPI/SCDs. Resume SQ heparin in a.m. 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
[2016-08-12] MEDS ORDERED: SODIUM CHLORID 0.9% 500 ML INJ 500 ML IV ONE (18:00)
--- NOTE | 2016-08-12 18:56 | PD.ID.CON ---
History of Present Illness Service ID Consult Requested By Dr Fox Reason for Consult acute cholangitis Primary Care Physician Rafael Mejia MD Diagnoses: History of Present Illness 80-year-old female with a past medical history significant for cholecystectomy 8 years ago, recurrent CBD stones/obstruction requiring ERCPs/stenting with stent removal done in March [address] Covington and CBD stone fragments were removed at that time. Patient presented with abdominal pain for 3 weeks in the right upper quadrant with nausea vomiting and jaundice i Pt was hypotensive with systolic blood pressure in the 80s. She received 3 L of normal saline bolus and was started on Levophed Pt was diagnosed with cholangitis and sepsis secondary to it . S/p ERCP and emergent stent placement yday Over next 24 hrs pt improved, levaphed weande down to 3 mcg On NC O2 and afebrile Her lipase elevated, but trending down SHe has substantial leucytosis Review of Systems Except as stated in HPI: all other systems reviewed are Neg Past Family Social History Allergies: Coded Allergies: Penicillin (Verified Allergy, Mild, 08/11/16) Past Medical History Depression, High Cholesterol, Diabetes CBD stones status post multiple ERCPs with stenting and stone removal last one being in March 2016 when her CBD stent was removed and the sweep was performed for a filling defect with removal of CBD stone fragments by Dr. Covington Past Surgical History APPENDECTOMY, Cholecystectomy Hysterectomy Active Ordered Medications Medications where reviewed in EMR Antibiotics Include: levaquin, flagyl Family History Non-Contributory. Social History Alcohol Use: No Tobacco Use: No Substance Use: No Physical Exam Vital Signs Vital Signs Date Time Temp Pulse Resp B/P Pulse Ox O2 Delivery O2 Flow Rate FiO2 08/12/16 18:25 18 08/12/16 18:00 140 08/12/16 16:00 98.0 114 20 108/60 96 106/54 08/12/16 16:00 114 08/12/16 14:00 119 08/12/16 12:00 98.3 84 16 99/54 96 97/48 08/12/16 12:00 109 08/12/16 10:00 96 08/12/16 08:00 88 08/12/16 08:00 96 Nasal Cannula 3.00 08/12/16 08:00 97.9 88 16 106/59 95 111/51 08/12/16 07:00 94 Nasal Cannula 2.00 08/12/16 06:00 88 08/12/16 04:00 91 08/12/16 04:00 98.2 91 15 105/55 96 108/48 08/12/16 02:00 95 Nasal Cannula 3.00 08/12/16 02:00 104 08/12/16 00:00 98.0 104 14 130/62 94 118/45 08/12/16 00:00 104 08/11/16 22:30 97.5 103 30 106/53 91 93/44 08/11/16 22:15 97.6 101 16 94/49 94 Nasal Cannula 3 110/43 08/11/16 22:00 102 16 93/49 94 Nasal Cannula 3 89/45 08/11/16 21:45 102 16 88/42 99 Nasal Cannula 3 100/42 08/11/16 21:35 98.2 109 15 92/46 98 Simple Mask 10 99/44 08/11/16 20:00 101 18 115/59 97 Nasal Cannula 3 08/11/16 19:45 101 18 116/59 97 Nasal Cannula 3 08/11/16 19:30 101 18 110/54 97 Nasal Cannula 3 08/11/16 19:15 104 18 109/54 97 Nasal Cannula 3 08/11/16 19:00 97 Nasal Cannula 3.00 08/11/16 19:00 104 20 109/55 97 Nasal Cannula 3 Physical Exam CONSTITUTIONAL/GENERAL: This is an adequately nourished patient, in no apparent distress. TUBES/LINES/DRAINS: SKIN: No jaundice, rashes, or lesions. Skin temperature appropriate. Not diaphoretic. HEAD: Atraumatic. Normocephalic. EYES: Pupils equal and round and reactive. Extraocular motions intact. No scleral icterus. No injection or drainage. Fundi not examined. ENT: Hearing grossly normal. Nose without bleeding or purulent drainage. oral mucosae moist NECK: Trachea midline. Supple, nontender. . CARDIOVASCULAR: Regular rate and rhythm without murmurs, gallops, or rubs. No JVD. Peripheral pulses symmetric. RESPIRATORY/CHEST: Symmetric, unlabored respirations. Clear to auscultation. Breath sounds equal bilaterally. No wheezes, rales, or rhonchi. GASTROINTESTINAL: Abdomen soft,diffusely markedly tender to palpation in RUQ with ? wo guarding/rebound markedly distended, + tympanic to percussion No hepato-splenomegaly, or palpable masses. No guarding. Bowel sounds present, active GENITOURINARY: Without palpable bladder distension. Ludwig catheter in place. MUSCULOSKELETAL: Extremities without clubbing, cyanosis, or edema. No joint tenderness or effusion noted. No calf tenderness. No mottling or clubbing. LYMPHATICS: No palpable cervical or supraclavicular adenopathy. NEUROLOGICAL: Awake and alert. Motor and sensory grossly within normal limits. Follows commands. Normal speech. Moves all extremities. PSYCHIATRIC: No obvious anxiety/depression. no apparent hallucinations or other psychotic thought process. Laboratory Laboratory Tests Test 08/11/16 08/11/16 08/11/16 08/11/16 19:55 22:30 23:15 23:44 Lactic Acid Level 4.1 2.7 Nasal Screen MRSA (PCR) NEGATIVE Sodium Level 130 Potassium Level 3.6 Chloride Level 96 Carbon Dioxide Level 19.5 Anion Gap 15 Blood Urea Nitrogen 32 Creatinine 1.40 Estimat Glomerular Filtration 36 Rate Random Glucose 108 Calcium Level 6.4 Protein Corrected Calcium 7.5 Total Bilirubin 3.6 Aspartate Amino Transf 91 (AST/SGOT) Alanine Aminotransferase 154 (ALT/SGPT) Alkaline Phosphatase 199 Total Protein 4.9 Albumin 2.1 Test 08/12/16 08/12/16 03:22 05:15 White Blood Count 21.2 Red Blood Count 3.42 Hemoglobin 10.2 Hematocrit 29.1 Mean Corpuscular Volume 85.2 Mean Corpuscular Hemoglobin 29.9 Mean Corpuscular Hemoglobin 35.1 Concent Red Cell Distribution Width 14.3 Platelet Count 153 Mean Platelet Volume 9.5 Neutrophils (%) (Auto) 76.6 Lymphocytes (%) (Auto) 2.0 Monocytes (%) (Auto) 2.3 Eosinophils (%) (Auto) 19.1 Basophils (%) (Auto) 0.0 Neutrophils # (Auto) 16.2 Lymphocytes # (Auto) 0.4 Monocytes # (Auto) 0.5 Eosinophils # (Auto) 4.0 Basophils # (Auto) 0.0 CBC Comment AUTO DIFF Differential Total Cells 100 Counted Neutrophils % (Manual) 60 Band Neutrophils % 33 Lymphocytes % 2 Monocytes % 2 Neutrophils # (Manual) 20.4 Metamyelocytes 2 Myelocytes 1 Differential Comment FINAL DIFF MANUAL Toxic Vacuolation PRESENT Dohle Bodies PRESENT Platelet Estimate NORMAL Platelet Morphology Comment NORMAL Red Cell Morphology Comment NORMAL Sodium Level 130 Potassium Level 4.1 Chloride Level 97 Carbon Dioxide Level 20.0 Anion Gap 13 Blood Urea Nitrogen 33 Creatinine 1.40 Estimat Glomerular Filtration 36 Rate Random Glucose 128 Calcium Level 6.5 Protein Corrected Calcium 7.5 Total Bilirubin 3.0 Aspartate Amino Transf 78 (AST/SGOT) Alanine Aminotransferase 145 (ALT/SGPT) Alkaline Phosphatase 191 Total Protein 5.0 Albumin 2.1 Lipase 452 Urine Color YELLOW Urine Turbidity HAZY Urine pH 5.0 Urine Specific [place] 1.007 Urine Protein NEG Urine Glucose (UA) NEG Urine Ketones NEG Urine Occult Blood TRACE Urine Nitrite NEG Urine Bilirubin NEG Urine Urobilinogen LESS THAN 2.0 Urine Leukocyte Esterase NEG Urine RBC 1 Urine WBC 3 Urine Squamous Epithelial <1 Cells Urine Amorphous Sediment RARE Urine Bacteria RARE Urine Hyaline Casts 1 Urine Granular Casts 2 Urine Mucus FEW Microscopic Urinalysis Comment CATH-CULTURE IND Date/Time Procedure Status Source Growth 08/12/16 05:15 Urine Culture Received Urine Catheterized Urine Pending 08/11/16 21:58 Aerobic Blood Culture Received Blood Peripheral Pending 08/11/16 21:58 Anaerobic Blood Culture Received Blood Peripheral Pending 08/11/16 21:00 Aerobic Blood Culture - Preliminary Resulted Blood Peripheral NO GROWTH IN 1 DAY 08/11/16 21:00 Anaerobic Blood Culture - Preliminary Resulted Blood Peripheral NO GROWTH IN 1 DAY Result Diagram: 08/12/16 0322 08/12/16 0322 Imaging Last Impressions Abdomen/Pelvis CT 08/11/16 1513 Signed Impressions: Service Date/Time: Thursday, August 11, 2016 16:15 - CONCLUSION: Mild mural thickening of the colon especially on the right side most characteristic of a mild colitis. Small amount of free fluid around the liver. No free air. Sahil Faria MD GI Procedure 08/11/16 0000 Signed Impressions: Service Date/Time: Thursday, August 11, 2016 20:55 - CONCLUSION: ERCP as above. Sahil Faria MD Chest X-Ray 08/11/16 0000 Signed Impressions: Service Date/Time: Thursday, August 11, 2016 17:12 - CONCLUSION: 1. Minimal basilar atelectasis. No effusion or pneumothorax. Sahil Faria MD Assessment and Plan Assessment and Plan Cholangitis sp emergent stent placement Sepsis, clinicalyy improved Leukocytosis - 2/2 cholangitis PCN allergy - rash -cont, flagyl - dc levaquin - start cefepime Mar Post MD Aug 12, 2016 18:56
[2016-08-12] MEDS: CEFEPIME INJ 2,000 MG in SODIUM CHLORIDE 0.9% INJ 100 ML IV SCH (23:43)
[2016-08-13] VITALS (13 sets, daily range): BP systolic 91–137; BP diastolic 46–62; PULSE 71–83; RESP 12–16; TEMP 97.5–98.3; O2SAT 92–99
[2016-08-13] MEDS: metroNIDAZOLE 500 MG INJ 100 ML IV SCH ×3 (00:59→16:21)
[2016-08-13] MEDS: SODIUM CHLOR 0.9% 1000 ML INJ 1,000 ML IV SCH ×2 (02:45→12:45)
[2016-08-13] MEDS: CHLORHEXIDINE GLUCONATE 2 % 1 PACK (2 CLOTHS) TOP SCH (03:34)
[2016-08-13] MEDS: HYDROmorphone HCL PF 1 MG/ML VIAL IV PUSH PRN ×4 (03:34→18:29)
[2016-08-13 05:01] LABS: AUTOMATED NEUTROPHIL # 10.7 TH/MM3 (1.8-7.7); BASOPHIL % 0.2 % (0.0-2.0); EOSINOPHIL # 0.4 TH/MM3 (0-0.4); EOSINOPHIL % 3.2 % (0.0-4.0); HEMATOCRIT 27.2 % (35.0-46.0); LYMPH % 5.4 % (9.0-44.0); LYMPHOCYTE # 0.7 TH/MM3 (1.0-4.8); MEAN CELL VOLUME 85.2 FL (80.0-100.0); MEAN CORPUSCULAR HEMOGLOBIN 29.1 PG (27.0-34.0); MEAN CORPUSCULAR HGB CONC 34.2 % (32.0-36.0); MONO % 3.7 % (0.0-8.0); NEUT % 87.5 % (16.0-70.0); PLATELET COUNT 108 TH/MM3 (150-450); RED BLOOD COUNT 3.19 MIL/MM3 (4.00-5.30); RED CELL DISTRIBUTION WIDTH 14.5 % (11.6-17.2); WHITE BLOOD COUNT 12.2 TH/MM3 (4.0-11.0)
[2016-08-13 05:24] LABS: BICARBONATE 18.9 MEQ/L (21.0-32.0); CALCIUM-PROTEIN CORRECTED 7.5 MG/DL (8.5-10.1); POTASSIUM 3.7 MEQ/L (3.5-5.1); TOTAL BILIRUBIN ADULT 0.9 MG/DL (0.2-1.0)
[2016-08-13] MEDS ORDERED: CALCIUM CHLORIDE INJ 1 GM in DEXTROSE 5% IN WATER 100ML INJ 100 ML IV ONE ×2 (05:45)
[2016-08-13] MEDS: INSULIN ASPART SUPPLEMENTAL SCALE SQ SCH ×3 (06:00→18:00)
[2016-08-13] MEDS: MAGNESIUM SULFATE 1 GM PREMIX 100 ML IV SCH ×2 (06:05→06:50)
[2016-08-13] MEDS: LEVOTHYROXINE SODIUM 75 MCG TAB PO SCH (06:09)
[2016-08-13 06:45] LABS: HEMO FLAGS AUTO DIFF
[2016-08-13 06:48] LABS: BANDS 19 % (0-6); NEUTROPHIL # MANUAL DIFF 11.5 TH/MM3 (1.8-7.7); PLATELET ESTIMATE SMEAR LOW (NORMAL); PLATELET MORPHOLOGY NORMAL (NORMAL); POLYS (SEG NEUTROPHILS) 75 % (16-70); SCAN/DIFF FINAL DIFF MANUAL; WBC DIFF SAMPLE 100
[2016-08-13 06:52] LABS: DOHLE BODIES PRESENT (NONE SEEN); TOXIC VACUOLATION PRESENT (NONE SEEN)
[2016-08-13 06:58] LABS: BURR CELLS 1+ (NORMAL)
[2016-08-13] MEDS: SODIUM CHLORIDE 0.9% FLUSH 10 ML FLUSH IV FLUSH SCH ×2 (08:27→21:11)
[2016-08-13] MEDS: SODIUM CHLORIDE 0.9% FLUSH 10 ML FLUSH IV FLUSH PRN ×2 (08:28→12:58)
[2016-08-13] MEDS: HEPARIN SODIUM - SQ 10,000 UNITS/ML VIAL SQ SCH ×2 (08:28→21:00)
[2016-08-13] MEDS: PANTOPRAZOLE SODIUM 40 MG VIAL IV SCH (08:28)
[2016-08-13] MEDS ORDERED: ONDANSETRON HCL 4 MG/2 ML VIAL IV PUSH PRN (08:30)
--- NOTE | 2016-08-13 09:36 | HHI.CCPN ---
Subjective Remarks/Hospital Course 80-year-old female with a past medical history significant for cholecystectomy 8 years ago, recurrent CBD stones/obstruction requiring ERCPs/stenting with stent removal done in March [address] Covington and CBD stone fragments were removed at that time. Patient now presents with abdominal pain going on for about 3 weeks which increased in severity over the last 3 days more so in the right upper quadrant along with nausea vomiting. Patient appeared jaundiced in the ER and was noted to have elevated LFTs and was hypotensive with systolic blood pressure in the 80s. She received 3 L of normal saline bolus and was started on Levophed for pressor support after a right IJ central line was placed by ER physician. She was diagnosed to be septic most likely secondary to cholangitis. She did have an elevated lipase as well. Patient was accepted for admission by critical care medicine service. When I came to evaluate patient around 6:15 PM she was laying in the ER stretcher complaining of significant abdominal pain 10 out of 10 in intensity. She had not received any pain medication so far. She had finished her third liter of normal saline and was on Levophed 2 mics per minute. Levaquin infusion was just getting completed and Flagyl infusion was going to be started next. I ordered fentanyl 50 mics IV started with which she had some relief of her abdominal pain. She has been having bowel movements according to her which are brown in color with no fresh blood or melena noted. Subjective 08/12: Afebrile.The patient is status post ERCP with sphincterotomy and stone removal last evening and stent placement. Biopsy also obtained for thickened ampulla of Vater to rule out malignant process. Patient's pain well to control this a.m. reports it is 08/12. 08/13: Tmax 97.8. No acute events overnight. Patient's diet was advanced to clear liquids yesterday tolerating it. Leukocytosis resolving ID following Dr. Post. Lipase levels normalized this a.m. Objective Vital Signs Date Time Temp Pulse Resp B/P Pulse Ox O2 Delivery O2 Flow Rate FiO2 08/13/16 07:00 95 Nasal Cannula 2.00 08/13/16 06:00 78 08/13/16 04:00 98.2 15 91/54 101/48 Intake and Output 08/12/16 08/12/16 08/13/16 08:00 16:00 00:00 Intake Total 1122 ml 1298 ml 1300 ml Output Total 550 ml 900 ml 750 ml Balance 572 ml 398 ml 550 ml Result Diagram: 08/13/16 0330 08/13/16 0330 Imaging Last Impressions Abdomen/Pelvis CT 08/11/16 1513 Signed Impressions: Service Date/Time: Thursday, August 11, 2016 16:15 - CONCLUSION: Mild mural thickening of the colon especially on the right side most characteristic of a mild colitis. Small amount of free fluid around the liver. No free air. Sahil Faria MD Chest X-Ray 08/11/16 0000 Signed Impressions: Service Date/Time: Thursday, August 11, 2016 17:12 - CONCLUSION: 1. Minimal basilar atelectasis. No effusion or pneumothorax. Sahil Faria MD Objective Remarks Narrative GENERAL: Well-nourished, well-developed elderly female . Hard of hearing in no apparent distress SKIN: Focused skin assessment reveals no rash and nodules. Skin is Warm and dry. She looks jaundiced HEAD: Atraumatic. Normocephalic. EYES: Pupils equal and round. Positive scleral icterus. No injection or drainage. ENT: No nasal bleeding or discharge. Mucous membranes pink and moist. NECK: Trachea midline. No JVD. CARDIOVASCULAR: Regular rate and rhythm. No murmur appreciated. RESPIRATORY: No accessory muscle use. Clear to auscultation. Breath sounds equal bilaterally. GASTROINTESTINAL: Abdomen soft. Patient has a mild tenderness in the lower abdomen without guarding. Hepatic and splenic margins not palpable. MUSCULOSKELETAL: No obvious deformities. No clubbing. No cyanosis. No edema. NEUROLOGICAL: Awake and alert. No obvious cranial nerve deficits. Motor grossly within normal limits. Normal speech. PSYCHIATRIC: Appropriate mood and affect; insight and judgment normal. A/P Assessment and Plan 80-year-old female with: Abdominal pain Cholangitis Choledocholithiasis S/P ERCP with sphincterotomy and stone removal, stent placement Septic shock Acute pancreatitis probably secondary to CBD stones Elevated LFTs Hyperbilirubinemia Possible mild colitis in the ascending colon(based on CT result) Bandemia Leukocytosis Diabetes mellitus AK I History of recurrent CBD stones/obstruction status post previous ERCP and stenting with stent removal in March 2016 History of hypothyroidism Hypomagnesemia Plan: Neuro: Fentanyl when necessary for pain. Follow neuro status. Cardiovascular: Status post 3 L normal saline. Continue IV fluids. Levophed for pressor support. Lactic acid sepsis protocol ordered by me to trend lactic acid. Pulmonary: Supplemental O2 as needed, bronchodilators when necessary for wheezing. Encourage incentive spirometry GI/liver: Clear liquid diet. GI consult Dr. Cam following. Follow LFTs, Lipase WNL 154, follow-up pathology report Renal/: IV hydration, strict intake output, monitor and replete electrolytes, follow BUN/creatinine. ID: Continue IV Levaquin discontinued 08/12. Flagyl and Cefepime (day 2). ID following, Dr. Post. WBC 21->12 today, Bands 21->33->19 today Heme: Follow CBC and coags. Endocrine: SSI for glycemic control. Synthroid 75 mcgs q day. Prophylaxis: PPI/SCDs. SQ heparin 5000u q 12 hr Dispo: Level 3 Discussed with and SOUND SYSTEM INSTALLER at bedside. Plan transfer to [facility] in a.. Physician Daisy Mcgill MD Aug 13, 2016 09:36
[2016-08-13] MEDS ORDERED: BISACODYL 10 MG SUPP RECTAL PRN (09:45)
[2016-08-13] MEDS: CEFEPIME INJ 2,000 MG in SODIUM CHLORIDE 0.9% INJ 100 ML IV SCH (11:28)
--- NOTE | 2016-08-13 11:42 | EKG ---
Date Performed: 08/12/2016 Time Performed: 18:16:28 PTAGE: 80 years EKG: Possible atrial fibrillation with rapid ventricular response Inferior infarct - age undeter mined Possible anterior infarct - age undetermined Lateral ST-T changes may be due to myocardial isch emia Abnormal ECG NO PREVIOUS TRACING DOCTOR: Ricky Prieto Interpretating Date/Time 08/13/2016 11:38:27
--- NOTE | 2016-08-13 12:17 | HHI.GIFU ---
Subjective Remarks Intermittent nausea, no vomiting. Worsening abdominal distention. Pt states last BM was last week- reports this was Friday am. (Massiel Shahid) Objective Vitals I&O Vital Signs Date Time Temp Pulse Resp B/P Pulse Ox O2 Delivery O2 Flow Rate FiO2 08/13/16 10:00 72 08/13/16 08:00 98.1 71 15 137/62 95 130/55 08/13/16 08:00 71 08/13/16 07:00 95 Nasal Cannula 2.00 08/13/16 06:00 78 08/13/16 04:00 79 08/13/16 04:00 98.2 79 15 91/54 94 101/48 08/13/16 02:00 75 08/13/16 00:00 92 Room Air 08/13/16 00:00 97.5 79 16 97/53 92 105/59 08/13/16 00:00 79 08/12/16 22:00 88 08/12/16 21:01 95 Nasal Cannula 1.50 08/12/16 20:00 97.8 89 18 110/56 96 108/55 08/12/16 20:00 89 08/12/16 19:00 96 Nasal Cannula 2.00 08/12/16 18:25 18 08/12/16 18:00 140 08/12/16 16:00 98.0 114 20 108/60 96 106/54 08/12/16 16:00 114 08/12/16 14:00 119 I/O 08/12/16 08/12/16 08/12/16 08/13/16 08/13/16 08/13/16 07:00 15:00 23:00 07:00 15:00 23:00 Intake Total 1122 ml 1298 ml 1300 ml 1008 ml Output Total 550 ml 900 ml 750 ml 500 ml Balance 572 ml 398 ml 550 ml 508 ml Intake Oral 50 ml 50 ml IV Total 1122 ml 1298 ml 1250 ml 958 ml Output Urine Total 550 ml 900 ml 750 ml 500 ml # Bowel Movements 0 0 0 0 Laboratory Laboratory Tests Test 08/13/16 03:30 White Blood Count 12.2 Red Blood Count 3.19 Hemoglobin 9.3 Hematocrit 27.2 Mean Corpuscular Volume 85.2 Mean Corpuscular Hemoglobin 29.1 Mean Corpuscular Hemoglobin 34.2 Concent Red Cell Distribution Width 14.5 Platelet Count 108 Mean Platelet Volume 9.5 Neutrophils (%) (Auto) 87.5 Lymphocytes (%) (Auto) 5.4 Monocytes (%) (Auto) 3.7 Eosinophils (%) (Auto) 3.2 Basophils (%) (Auto) 0.2 Neutrophils # (Auto) 10.7 Lymphocytes # (Auto) 0.7 Monocytes # (Auto) 0.5 Eosinophils # (Auto) 0.4 Basophils # (Auto) 0.0 CBC Comment AUTO DIFF Differential Total Cells 100 Counted Neutrophils % (Manual) 75 Band Neutrophils % 19 Lymphocytes % 2 Monocytes % 4 Neutrophils # (Manual) 11.5 Differential Comment FINAL DIFF MANUAL Toxic Vacuolation PRESENT Dohle Bodies PRESENT Platelet Estimate LOW Platelet Morphology Comment NORMAL Margot Cells 1+ Sodium Level 139 Potassium Level 3.7 Chloride Level 109 Carbon Dioxide Level 18.9 Anion Gap 11 Blood Urea Nitrogen 29 Creatinine 1.14 Estimat Glomerular Filtration 46 Rate Random Glucose 102 Calcium Level 6.4 Protein Corrected Calcium 7.5 Phosphorus Level 2.7 Magnesium Level 1.0 Total Bilirubin 0.9 Aspartate Amino Transf 28 (AST/SGOT) Alanine Aminotransferase 90 (ALT/SGPT) Alkaline Phosphatase 141 Total Protein 4.8 Albumin 1.8 Lipase 154 Date/Time Procedure Status Source Growth 08/12/16 05:15 Urine Culture - Preliminary Resulted Urine Catheterized Urine NO GROWTH IN 24 HOURS. 08/11/16 21:58 Aerobic Blood Culture Received Blood Peripheral Pending 08/11/16 21:58 Anaerobic Blood Culture Received Blood Peripheral Pending 08/11/16 21:00 Aerobic Blood Culture - Preliminary Resulted Blood Peripheral NO GROWTH IN 2 DAYS 08/11/16 21:00 Anaerobic Blood Culture - Preliminary Resulted Blood Peripheral NO GROWTH IN 2 DAYS Imaging Last Impressions Abdomen/Pelvis CT 08/11/16 1513 Signed Impressions: Service Date/Time: Thursday, August 11, 2016 16:15 - CONCLUSION: Mild mural thickening of the colon especially on the right side most characteristic of a mild colitis. Small amount of free fluid around the liver. No free air. Sahil Faria MD GI Procedure 08/11/16 0000 Signed Impressions: Service Date/Time: Thursday, August 11, 2016 20:55 - CONCLUSION: ERCP as above. Sahil Faria MD Chest X-Ray 08/11/16 0000 Signed Impressions: Service Date/Time: Thursday, August 11, 2016 17:12 - CONCLUSION: 1. Minimal basilar atelectasis. No effusion or pneumothorax. Sahil Faria MD Physical Exam HEENT: Normocephalic; atraumatic; no jaundice. CHEST: CTA CARDIAC: RRR ABDOMEN: Distended, diffuse tenderness, hypoactive bowel sounds, no hepatosplenomegaly. EXTREMITIES: No clubbing, cyanosis, or edema. SKIN: Normal; no rash; no jaundice. RESIDENTIAL SUBSTANCE ABUSE COUNSELOR: No focal deficits; alert and oriented times three. (Massiel Shahid [facility]) Assessment and Plan Plan ASSESSMENT: - Cholangitis, Choledocholithiasis. Abdomen/Pelvis CT (08/11/16)----> Mild mural thickening of the colon especially on the right side most characteristic of a mild colitis. Small amount of free fluid around the liver. No free air. S/ P ERCP with sphincterotomy, stone removal, stent placement (08/11/16)----> CBD Dilation, stone, puss, prominent ampulla. Pathology pending from ampulla. LFTs improved. WBC improved. Cefepime, - Elevated LFTs secondary to above. S/P ERCP as above. LFTs improving. - Pancreatitis, likely related to choledocholithiasis. Pt with hx of cholecystectomy. S/P ERCP as above. IMPROVED. - Sepsis/Leukocytosis. Improved. On cefepime. - ? Colitis, ascending colon on CT. Levaquin, Flagyl. Check stool for CDiff, C /s. - ? Ileus/Abdominal distention, worsening. Suspect ileus. Pt with nausea, worsening distention. Pt states last bm was last week, reports that this was Friday am. Will start on reglan, miralax, colace for suspected ileus. Will get KUB and will consider SSE once this has been resulted. - ALKA with electrolyte abnormalities. IMPROVED. Per CCM - DM, Hypothyroidism per primary. Per CCM PLAN: - Clear liquids - KUB now - Reglan 5mg IV q8h - Miralax 17gram po daily - Colace 100mg po BID - Cont. PPI - Cont. IVF - Send stool for CDiff, C/S - Monitor labs - On cefepime - Supportive care - Further recommendations to follow based on results of above - Pt seen and examined by Dr. Cam and myself and this note is written on his behalf (Massiel Shahid) Physician Comments patient was seen and examined, agree with above note, KUB showed ileus, we will see how she is doing in am and possibly repeat KUB. (Christina Cam MD) Massiel Shahid Aug 13, 2016 12:17 Christina Cam MD Aug 13, 2016 17:25
[2016-08-13] MEDS: DOCUSATE SODIUM 100 MG/10 ML UDC PO SCH ×2 (12:44→21:10)
--- NOTE | 2016-08-13 13:01 | RADRPT ---
EXAM DATE/TIME: 08/13/2016 13:31 [facility] COMPARISON: No previous studies available for comparison. INDICATIONS : Abdominal pain. Evaluate for ileus. MEDICAL HISTORY : Hypertension. Gastroesophageal reflux disease. diabetes. SURGICAL HISTORY : Cholecystectomy, bile duct surgery, hysterectomy, appendectomy. ENCOUNTER: Subsequent ACUITY: 3 days PAIN SCORE: 6/10 LOCATION: Abdomen, all quadrant. FINDINGS: There are mildly distended gas-filled loops of small and large bowel which can be seen with an ileus. Degenerative changes of the spine are noted. No abnormal calcifications are seen. CONCLUSION: Ileus pattern suspected. Nehemias Swain MD on August 13, 2016 at 12:59 Board Certified Radiologist. This report was verified electronically.
--- NOTE | 2016-08-13 13:08 | MR ---
cc: AROLDO SIMMONS M.D. DATE 08/11/2016 DATE OF [address] Estrada PROCEDURE ERCP with sphincterotomy, stone removal, biopsy and stent placement. INDICATION 80-year-old lady with multiple previous episodes of ERCP. The patient came with severe abdominal pain, sepsis and pancreatitis. PROCEDURE After informing the patient about the procedure and complications, consent was signed. The patient was intubated after sedation by anesthesia. The patient was placed on her abdomen in the prone position. The scope was placed in the mouth, advanced under video guidance to the second portion of the duodenum. The ampulla was bulging with a significant abnormality. Cannulation was done without any difficulty. Sphincterotomy was done. As soon as I did sphincterotomy, pus started coming out. I swept the duct after doing cholangiogram with minimal pressure. The common bile duct was dilated. I swept the duct with a balloon size 15 with significant sludge and small fragments of stone coming out. After that, I flushed the common bile duct generously and then duct was cleaned with normal saline and then an 8.5 [place] 9 cm stent was placed without any difficulty. A small biopsy from the ampulla was done without immediate complication. FINDINGS 1. EGD, limited exam normal. 2. Ampule enlarged, biopsy was done. 3. Common bile duct dilation with stones and sludge. 4. Stent placed. RECOMMENDATIONS 1. N.p.o. 2. Continue antibiotic 3. Follow-up biopsy 4. May need as an outpatient for evaluation of the ampulla. 5. ERCP in two to three months. The patient was admitted to the ICU. We will continue antibiotic. MD GEORGINA Salazar/ELIDA /9:23 PM /1:02 PM
[2016-08-13] MEDS: METOCLOPRAMIDE HCL 10 MG/2 ML VIAL IV PUSH SCH ×2 (14:49→21:54)
[2016-08-13] MEDS ORDERED: LEVOFLOXACIN 500 MG PREMIX INJ 100 ML IV SCH (15:00)
[2016-08-13] MEDS ORDERED: MAGNESIUM CITRATE SOLN 300 ML BTL PO ONE (18:00)
[2016-08-14] VITALS (14 sets, daily range): BP systolic 91–173; BP diastolic 59–76; PULSE 63–85; RESP 17–22; TEMP 97.6–99.1; O2SAT 93–100
[2016-08-14] MEDS: CEFEPIME INJ 2,000 MG in SODIUM CHLORIDE 0.9% INJ 100 ML IV SCH ×2 (01:36→11:21)
[2016-08-14] MEDS: metroNIDAZOLE 500 MG INJ 100 ML IV SCH ×3 (01:36→17:08)
[2016-08-14] MEDS ORDERED: MORPHINE SULFATE 4 MG/ML INJ IV PUSH ONE (03:30)
[2016-08-14] MEDS ORDERED: FAMOTIDINE 20 MG TAB PO ONE (03:45)
[2016-08-14] MEDS: CHLORHEXIDINE GLUCONATE 2 % 1 PACK (2 CLOTHS) TOP SCH (04:00)
[2016-08-14 04:23] LABS: HEMATOCRIT 27.4 % (35.0-46.0); MEAN CELL VOLUME 85.9 FL (80.0-100.0); MEAN CORPUSCULAR HEMOGLOBIN 29.5 PG (27.0-34.0); MEAN CORPUSCULAR HGB CONC 34.3 % (32.0-36.0); PLATELET COUNT 123 TH/MM3 (150-450); RED BLOOD COUNT 3.19 MIL/MM3 (4.00-5.30); RED CELL DISTRIBUTION WIDTH 14.8 % (11.6-17.2); REVIEW FLAG FINAL; WHITE BLOOD COUNT 10.9 TH/MM3 (4.0-11.0)
[2016-08-14 05:01] LABS: BICARBONATE 21.7 MEQ/L (21.0-32.0); MAGNESIUM 1.8 MG/DL (1.5-2.5); POTASSIUM 3.2 MEQ/L (3.5-5.1)
[2016-08-14 05:16] LABS: CALCIUM-PROTEIN CORRECTED 8.6 MG/DL (8.5-10.1)
[2016-08-14] MEDS ORDERED: POTASSIUM CHLOR 40 MEQ PREMIX 100 ML IV PRN ×2 (05:30)
[2016-08-14] MEDS ORDERED: POTASSIUM CHLOR 20 MEQ PREMIX 100 ML IV PRN ×2 (05:30)
[2016-08-14] MEDS ORDERED: MAGNESIUM SULFATE INJ 2 GM in SODIUM CHLORIDE 0.9% INJ 96 ML IV PRN (05:30)
[2016-08-14] MEDS ORDERED: POTASSIUM PHOSPHATE MONOBASIC 500 MG TAB PO PRN (05:30)
[2016-08-14] MEDS ORDERED: MAGNESIUM OXIDE 400 MG TAB PO PRN (05:30)
[2016-08-14] MEDS ORDERED: SODIUM PHOSPHATE INJ 30 MMOL in SODIUM CHLOR 0.9% 250 ML INJ 240 ML IV PRN (05:30)
[2016-08-14] MEDS ORDERED: POTASSIUM PHOSPHATE INJ 30 MMOL in SODIUM CHLOR 0.9% 250 ML INJ 250 ML IV PRN (05:30)
[2016-08-14] MEDS ORDERED: MAGNESIUM SULFATE INJ 4 GM in SODIUM CHLORIDE 0.9% INJ 92 ML IV PRN (05:30)
[2016-08-14] MEDS ORDERED: POTASSIUM PHOSPHATE MONOBASIC 500 MG TAB PO/TUBE PRN (05:30)
[2016-08-14] MEDS ORDERED: ASPIRIN 81 MG CHEW TAB CHEW ONE (05:30)
[2016-08-14] MEDS: METOCLOPRAMIDE HCL 10 MG/2 ML VIAL IV PUSH SCH ×3 (05:46→21:05)
[2016-08-14] MEDS: LEVOTHYROXINE SODIUM 75 MCG TAB PO SCH (05:46)
[2016-08-14] MEDS: INSULIN ASPART SUPPLEMENTAL SCALE SQ SCH ×4 (05:46→18:00)
--- NOTE | 2016-08-14 05:59 | RADRPT ---
EXAM DATE/TIME: 08/14/2016 03:49 [facility] COMPARISON: ABDOMEN KUB ONLY, August 13, 2016, 13:31. INDICATIONS : Abdomen pain. MEDICAL HISTORY : Hypertension. Gastroesophageal reflux disease. diabetes. SURGICAL HISTORY : Cholecystectomy, bile duct surgery, hysterectomy, appendectomy. ENCOUNTER: Subsequent ACUITY: 1 week PAIN SCORE: Non-responsive. LOCATION: Bilateral abdomen FINDINGS: Supine view of the abdomen was performed. Then the common bile duct again noted. Mild gaseous distent ion of bowel loops again seen. No abnormal masses, calcifications, or organomegaly is seen. Mild dege nerative change in lumbar spine and both hips. CONCLUSION: Mild gaseous distention of multiple bowel loops, unchanged. Renzo Blair MD on August 14, 2016 at 5:56 Board Certified Radiologist. This report was verified electronically.
--- NOTE | 2016-08-14 08:05 | HHI.PR ---
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 Covington and CBD stone fragments were removed at that time. Patient now presents with abdominal pain going on for about 3 weeks which increased in severity over the last 3 days more so in the right upper quadrant along with nausea vomiting. Patient appeared jaundiced in the ER and was noted to have elevated LFTs and was hypotensive with systolic blood pressure in the 80s. She received 3 L of normal saline bolus and was started on Levophed for pressor support after a right IJ central line was placed by ER physician. She was diagnosed to be septic most likely secondary to cholangitis. She did have an elevated lipase as well. Patient was accepted for admission by critical care medicine service. When I came to evaluate patient around 6:15 PM she was laying in the ER stretcher complaining of significant abdominal pain 10 out of 10 in intensity. She had not received any pain medication so far. She had finished her third liter of normal saline and was on Levophed 2 mics per minute. Levaquin infusion was just getting completed and Flagyl infusion was going to be started next. I ordered fentanyl 50 mics IV started with which she had some relief of her abdominal pain. She has been having bowel movements according to her which are brown in color with no fresh blood or melena noted. 08/12: Afebrile.The patient is status post ERCP with sphincterotomy and stone removal last evening and stent placement. Biopsy also obtained for thickened ampulla of Vater to rule out malignant process. Patient's pain well to control this a.m. reports it is 08/12. 08/13: Tmax 97.8. No acute events overnight. Patient's diet was advanced to clear liquids yesterday tolerating it. Leukocytosis resolving ID following Dr. Post. Lipase levels normalized this a.m. Hospitalist Notes: 08/14: Seen in her bedroom, in the presence of her Mr. Miguel Angel Olvera no complaint, no nausea, vomit or diarrhea, discussed also with nurse Surendrahien continue electrolyte replacement and following. Objective Vital Signs Date Time Temp Pulse Resp B/P Pulse Ox O2 Delivery O2 Flow Rate FiO2 08/14/16 06:00 81 08/14/16 04:00 80 08/14/16 04:00 99.1 80 20 148/67 97 120/63 08/14/16 02:00 85 08/14/16 00:00 97.6 76 20 139/65 99 124/63 08/14/16 00:00 76 08/13/16 22:00 83 08/13/16 20:00 98.1 79 16 131/58 96 131/57 08/13/16 20:00 79 08/13/16 19:53 96 Nasal Cannula 2.50 08/13/16 19:00 96 Nasal Cannula 2.00 08/13/16 18:00 80 08/13/16 16:00 98.3 72 12 109/53 99 111/46 08/13/16 16:00 72 08/13/16 14:48 14 08/13/16 14:00 77 08/13/16 12:00 73 08/13/16 12:00 98.0 73 14 109/56 96 116/50 08/13/16 10:00 72 I/O 08/13/16 08/13/16 08/13/16 08/14/16 08/14/16 08/14/16 07:00 15:00 23:00 07:00 15:00 23:00 Intake Total 1008 ml 846 ml 384 ml 471 ml Output Total 500 ml 500 ml 650 ml 850 ml Balance 508 ml 346 ml -266 ml -379 ml Intake Oral 50 ml IV Total 958 ml 846 ml 384 ml 471 ml Output Urine Total 500 ml 500 ml 650 ml 850 ml # Bowel Movements 0 0 1 Result Diagram: 08/14/16 0345 08/14/16 0345 Imaging Last Impressions Abdomen X-Ray 08/14/16 0600 Signed Impressions: Service Date/Time: Sunday, August 14, 2016 03:49 - CONCLUSION: Mild gaseous distention of multiple bowel loops, unchanged. Renzo Blair MD Abdomen/Pelvis CT 08/11/16 1513 Signed Impressions: Service Date/Time: Thursday, August 11, 2016 16:15 - CONCLUSION: Mild mural thickening of the colon especially on the right side most characteristic of a mild colitis. Small amount of free fluid around the liver. No free air. Sahil Faria MD GI Procedure 08/11/16 0000 Signed Impressions: Service Date/Time: Thursday, August 11, 2016 20:55 - CONCLUSION: ERCP as above. Sahil Faria MD Chest X-Ray 08/11/16 0000 Signed Impressions: Service Date/Time: Thursday, August 11, 2016 17:12 - CONCLUSION: 1. Minimal basilar atelectasis. No effusion or pneumothorax. Sahil Faria MD Procedures status post ERCP with Sphincterotomy and stone removal, stent placement Other Results Laboratory Tests Test 08/11/16 08/11/16 08/11/16 08/12/16 15:10 22:30 23:44 03:22 Prothrombin Time 18.1 SEC Prothromb Time International 1.6 RATIO Ratio Activated Partial 32.9 SEC Thromboplast Time Gamma Glutamyl Transpeptidase 706 U/L Nasal Screen MRSA (PCR) NEGATIVE Lactic Acid Level 2.7 mmol/L Metamyelocytes 2 % Myelocytes 1 % Red Cell Morphology Comment NORMAL Test 08/12/16 08/13/16 08/14/16 05:15 03:30 03:45 Urine Color YELLOW Urine Turbidity HAZY Urine pH 5.0 Urine Specific [place] 1.007 Urine Protein NEG mg/dL Urine Glucose (UA) NEG mg/dL Urine Ketones NEG mg/dL Urine Occult Blood TRACE Urine Nitrite NEG Urine Bilirubin NEG Urine Urobilinogen LESS THAN 2.0 MG/DL Urine Leukocyte Esterase NEG Urine RBC 1 /hpf Urine WBC 3 /hpf Urine Squamous Epithelial <1 /hpf Cells Urine Amorphous Sediment RARE Urine Bacteria RARE /hpf Urine Hyaline Casts 1 /lpf Urine Granular Casts 2 /lpf Urine Mucus FEW /lpf Microscopic Urinalysis Comment CATH-CULTURE IND Neutrophils (%) (Auto) 87.5 % Lymphocytes (%) (Auto) 5.4 % Monocytes (%) (Auto) 3.7 % Eosinophils (%) (Auto) 3.2 % Basophils (%) (Auto) 0.2 % Neutrophils # (Auto) 10.7 TH/MM3 Lymphocytes # (Auto) 0.7 TH/MM3 Monocytes # (Auto) 0.5 TH/MM3 Eosinophils # (Auto) 0.4 TH/MM3 Basophils # (Auto) 0.0 TH/MM3 CBC Comment AUTO DIFF Differential Total Cells 100 Counted Neutrophils % (Manual) 75 % Band Neutrophils % 19 % Lymphocytes % 2 % Monocytes % 4 % Neutrophils # (Manual) 11.5 TH/MM3 Differential Comment FINAL DIFF MANUAL Toxic Vacuolation PRESENT Dohle Bodies PRESENT Platelet Estimate LOW Platelet Morphology Comment NORMAL Margot Cells 1+ Total Bilirubin 0.9 MG/DL Aspartate Amino Transf 28 U/L (AST/SGOT) Alanine Aminotransferase 90 U/L (ALT/SGPT) Alkaline Phosphatase 141 U/L Albumin 1.8 GM/DL Lipase 154 U/L White Blood Count 10.9 TH/MM3 Red Blood Count 3.19 MIL/MM3 Hemoglobin 9.4 GM/DL Hematocrit 27.4 % Mean Corpuscular Volume 85.9 FL Mean Corpuscular Hemoglobin 29.5 PG Mean Corpuscular Hemoglobin 34.3 % Concent Red Cell Distribution Width 14.8 % Platelet Count 123 TH/MM3 Mean Platelet Volume 9.0 FL Sodium Level 141 MEQ/L Potassium Level 3.2 MEQ/L Chloride Level 109 MEQ/L Carbon Dioxide Level 21.7 MEQ/L Anion Gap 10 MEQ/L Blood Urea Nitrogen 19 MG/DL Creatinine 0.92 MG/DL Estimat Glomerular Filtration 59 ML/MIN Rate Random Glucose 104 MG/DL Calcium Level 7.3 MG/DL Protein Corrected Calcium 8.6 MG/DL Phosphorus Level 1.3 MG/DL Magnesium Level 1.8 MG/DL Total Creatine Kinase 39 U/L Troponin I 0.16 NG/ML Total Protein 4.8 GM/DL Objective Remarks GENERAL: Well-nourished, well-developed elderly female . Hard of hearing in no apparent distress SKIN: Focused skin assessment reveals no rash and nodules. Skin is Warm and dry. She looks jaundiced HEAD: Atraumatic. Normocephalic. EYES: Pupils equal and round. Positive scleral icterus. No injection or drainage. ENT: No nasal bleeding or discharge. Mucous membranes pink and moist. NECK: Trachea midline. No JVD. CARDIOVASCULAR: Regular rate and rhythm. No murmur appreciated. RESPIRATORY: No accessory muscle use. Clear to auscultation. Breath sounds equal bilaterally. GASTROINTESTINAL: Abdomen soft. Patient has a mild tenderness in the lower abdomen without guarding. Hepatic and splenic margins not palpable. MUSCULOSKELETAL: No obvious deformities. No clubbing. No cyanosis. No edema. NEUROLOGICAL: Awake and alert. No obvious cranial nerve deficits. Motor grossly within normal limits. Normal speech. PSYCHIATRIC: Appropriate mood and affect; insight and judgment normal. Medications and IVs Current Medications Medications (Trade) Dose Ordered Sig/Salvatore Route Start Time Stop Time Status Last Admin (NS 1000 ml Inj) 1,000 ml @ 50 mls/hr Q20H IV 08/11/16 19:00 08/13/16 12:45 (NS Flush) 2 ml UNSCH PRN IV FLUSH 08/11/16 18:45 08/13/16 12:58 (NS Flush) 2 ml BID IV FLUSH 08/11/16 21:00 08/13/16 21:11 Pantoprazole Sodium 40 mg 40 mg DAILY IV 08/11/16 18:45 08/13/16 08:28 (Flagyl 500 Mg Inj) 100 ml @ 100 mls/hr Q8H IV 08/12/16 01:00 08/14/16 01:36 Miscellaneous Information 1 Q361D XX 08/11/16 18:45 (Chlorhexidine 2% Cloth) 3 pack Taper DAILY@04 TOP 08/12/16 04:00 08/08/17 03:59 08/14/16 04:00 (Chlorhexidine 2% Cloth) 3 pack UNSCH PRN TOP 08/11/16 18:45 (Brethine Inj) 1 mg UNSCH PRN SQ 08/11/16 18:45 (NovoLOG SUPPLEMENTAL SCALE) 1 Q6HR SQ 08/12/16 00:00 (D50w (Vial) Inj) 25 ml UNSCH PRN IV 08/11/16 19:15 (Glucagon Inj) 1 mg UNSCH PRN IM/SQ 08/11/16 19:15 (Dilaudid Pf Inj) 0.5 mg Q4H PRN IV PUSH 08/11/16 20:15 08/13/16 18:29 (fentaNYL INJ) 50 mcg Q4H PRN IV PUSH 08/11/16 20:10 08/12/16 17:50 (Heparin Inj) 5,000 units Q12HR SQ 08/13/16 09:00 08/13/16 08:28 Levothyroxine Sodium 75 mcg 75 mcg DAILY@06 PO 08/13/16 06:00 08/14/16 05:46 (Maxipime Inj/NS Inj) 100 ml @ 200 mls/hr Q12H IV 08/13/16 00:00 08/14/16 01:36 (Zofran Inj) 4 mg Q6H PRN IV PUSH 08/13/16 08:30 08/14/16 03:10 (Dulcolax Supp) 10 mg DAILY PRN RECTAL 08/13/16 09:45 (Reglan Inj) 5 mg Q8HR IV PUSH 08/13/16 14:00 08/14/16 05:46 (Colace Liq) 100 mg Q12HR PO 08/13/16 12:15 08/13/16 21:10 Aspirin 162 mg 162 mg DAILY CHEW 08/15/16 09:00 Potassium Chloride 100 ml @ 50 mls/hr Q2H PRN IV 08/14/16 05:30 Potassium Chloride 100 ml @ 50 mls/hr Q2H PRN IV 08/14/16 05:30 Potassium Chloride 100 ml @ 25 mls/hr UNSCH PRN IV 08/14/16 05:30 Potassium Chloride 100 ml @ 50 mls/hr Q2H PRN IV 08/14/16 05:30 (Magnesium Sulfate Inj/NS Inj) 100 ml @ 50 mls/hr UNSCH PRN IV 08/14/16 05:30 Magnesium Oxide 800 mg 800 mg UNSCH PRN PO 08/14/16 05:30 (Magnesium Sulfate Inj/NS Inj) 100 ml @ 50 mls/hr UNSCH PRN IV 08/14/16 05:30 Potassium Phosphate 2000 mg 2,000 mg Q4H PRN PO 08/14/16 05:30 (Sodium Phosphate Inj/NS 250 ml Inj) 250 ml @ 42 mls/hr UNSCH PRN IV 08/14/16 05:30 Potassium Phosphate 2000 mg 2,000 mg UNSCH PRN PO/TUBE 08/14/16 05:30 (Potassium Phosphate Inj/NS 250 ml Inj) 260 ml @ 42 mls/hr UNSCH PRN IV 08/14/16 05:30 08/14/16 05:53 A/P Assessment and Plan 1. Intractable Abdominal pain Improved. 2. Cholangitis/Choledocholithiasis status post ERCP with Sphincterotomy and stone removal, stent placement History of CBD stones/obstruction status post previous ERCP and stenting with stent removal in March 2016 GI specialist following. stable. 3. Septic shock. Hydration given in ER and Intensive Care Unit, vasopressor given Levophed, ID specialist following on Cefepime and Flagyl, Leukocytosis trending down. 4. Acute Pancreatitis probably secondary to CBD stones Improving. 5. Possible mild colitis in the ascending Colon followed by GI specialist continue antibiotics. 6. DM II continue sliding scale. controlled. 7. Acute Kidney Injury Improved. 8. Hypothyroidism to continue Hormonal replacement 9. electrolyte derangement replaced and following. Potassium level at 16 Hours. Discussed with Patient and her Mr. Miguel Angel Olvera in the room, also nurse Miss Teague present. Prophylaxis: PPI/SCDs. SQ heparin 5000u q 12 hr Discharge Planning Expected in one to two days. Ariel Quijano MD Aug 14, 2016 08:05 ID: Continue IV Levaquin discontinued 08/12. Flagyl and Cefepime (day 2). ID following, Dr. Post. WBC 21->12 today, Bands 21->33->19 today Heme: Follow CBC and coags. Endocrine: SSI for glycemic control. Synthroid 75 mcgs q day. Prophylaxis: PPI/SCDs. SQ heparin 5000u q 12 hr Ariel Quijano MD Aug 14, 2016 08:05
[2016-08-14] MEDS: PANTOPRAZOLE SODIUM 40 MG VIAL IV SCH (08:23)
[2016-08-14] MEDS: HEPARIN SODIUM - SQ 10,000 UNITS/ML VIAL SQ SCH ×2 (08:23→21:04)
[2016-08-14] MEDS: SODIUM CHLORIDE 0.9% FLUSH 10 ML FLUSH IV FLUSH SCH ×2 (08:23→21:05)
[2016-08-14] MEDS: SODIUM CHLOR 0.9% 1000 ML INJ 1,000 ML IV SCH ×2 (08:23→21:27)
[2016-08-14] MEDS: DOCUSATE SODIUM 100 MG/10 ML UDC PO SCH ×2 (09:00→21:00)
--- NOTE | 2016-08-14 10:11 | EKG ---
Date Performed: 08/14/2016 Time Performed: 09:24:11 PTAGE: 80 years EKG: Sinus rhythm WITH MARKED SINUS ARRHYTHMIA MODERATE T-WAVE ABNORMALITY, CONSIDER ANTERIOR ISCHEMIA ABNORMAL ECG PREVIOUS TRACING : 08/14/2016 02.49 DOCTOR: Connor Hutchinson Interpretating Date/Time 08/14/2016 10:09:23
--- NOTE | 2016-08-14 10:29 | EKG ---
Date Performed: 08/14/2016 Time Performed: 02:49:16 PTAGE: 80 years EKG: Atrial fibrillation with rapid ventricular response Possible anterior infarct - age undeter mined Inferior/lateral T wave changes are nonspecific Abnormal ECG NO PREVIOUS TRACING DOCTOR: Connor Hutchinson Interpretating Date/Time 08/14/2016 10:27:46
[2016-08-14] MEDS: MAGNESIUM SULFATE 1 GM PREMIX 100 ML IV SCH ×2 (11:21→12:19)
--- NOTE | 2016-08-14 14:02 | HHI.IDPN ---
Subjective Subjective Remarks doing well afebrile started on clears, tolerates Had 2 liquid BMs Antibiotics cefepime flagyl Allergies: Coded Allergies: Penicillin (Verified Allergy, Mild, 08/11/16) Objective . Vital Signs Date Time Temp Pulse Resp B/P Pulse Ox O2 Delivery O2 Flow Rate FiO2 08/14/16 09:54 99 Nasal Cannula 2.00 08/14/16 07:00 97 Nasal Cannula 2.00 08/14/16 06:00 81 08/14/16 04:00 80 08/14/16 04:00 99.1 80 20 148/67 97 120/63 08/14/16 02:00 85 08/14/16 00:00 97.6 76 20 139/65 99 124/63 08/14/16 00:00 76 08/13/16 22:00 83 08/13/16 20:00 98.1 79 16 131/58 96 131/57 08/13/16 20:00 79 08/13/16 19:53 96 Nasal Cannula 2.50 08/13/16 19:00 96 Nasal Cannula 2.00 08/13/16 18:00 80 08/13/16 16:00 98.3 72 12 109/53 99 111/46 08/13/16 16:00 72 08/13/16 14:48 14 08/13/16 14:00 77 08/13/16 08/13/16 08/14/16 15:00 23:00 07:00 Intake Total 846 ml 384 ml 471 ml Output Total 500 ml 650 ml 850 ml Balance 346 ml -266 ml -379 ml IV Total 846 ml 384 ml 471 ml Output Urine Total 500 ml 650 ml 850 ml # Bowel Movements 0 1 . Laboratory Tests Test 08/13/16 08/14/16 03:30 03:45 White Blood Count 12.2 TH/MM3 10.9 TH/MM3 Red Blood Count 3.19 MIL/MM3 3.19 MIL/MM3 Hemoglobin 9.3 GM/DL 9.4 GM/DL Hematocrit 27.2 % 27.4 % Mean Corpuscular Volume 85.2 FL 85.9 FL Mean Corpuscular Hemoglobin 29.1 PG 29.5 PG Mean Corpuscular Hemoglobin 34.2 % 34.3 % Concent Red Cell Distribution Width 14.5 % 14.8 % Platelet Count 108 TH/MM3 123 TH/MM3 Mean Platelet Volume 9.5 FL 9.0 FL Neutrophils (%) (Auto) 87.5 % Lymphocytes (%) (Auto) 5.4 % Monocytes (%) (Auto) 3.7 % Eosinophils (%) (Auto) 3.2 % Basophils (%) (Auto) 0.2 % Neutrophils # (Auto) 10.7 TH/MM3 Lymphocytes # (Auto) 0.7 TH/MM3 Monocytes # (Auto) 0.5 TH/MM3 Eosinophils # (Auto) 0.4 TH/MM3 Basophils # (Auto) 0.0 TH/MM3 CBC Comment AUTO DIFF Differential Total Cells 100 Counted Neutrophils % (Manual) 75 % Band Neutrophils % 19 % Lymphocytes % 2 % Monocytes % 4 % Neutrophils # (Manual) 11.5 TH/MM3 Differential Comment FINAL DIFF MANUAL Toxic Vacuolation PRESENT Dohle Bodies PRESENT Platelet Estimate LOW Platelet Morphology Comment NORMAL Margot Cells 1+ Laboratory Tests Test 08/13/16 08/14/16 03:30 03:45 Sodium Level 139 MEQ/L 141 MEQ/L Potassium Level 3.7 MEQ/L 3.2 MEQ/L Chloride Level 109 MEQ/L 109 MEQ/L Carbon Dioxide Level 18.9 MEQ/L 21.7 MEQ/L Anion Gap 11 MEQ/L 10 MEQ/L Blood Urea Nitrogen 29 MG/DL 19 MG/DL Creatinine 1.14 MG/DL 0.92 MG/DL Estimat Glomerular Filtration 46 ML/MIN 59 ML/MIN Rate Random Glucose 102 MG/DL 104 MG/DL Calcium Level 6.4 MG/DL 7.3 MG/DL Protein Corrected Calcium 7.5 MG/DL 8.6 MG/DL Phosphorus Level 2.7 MG/DL 1.3 MG/DL Magnesium Level 1.0 MG/DL 1.8 MG/DL Total Bilirubin 0.9 MG/DL Aspartate Amino Transf 28 U/L (AST/SGOT) Alanine Aminotransferase 90 U/L (ALT/SGPT) Alkaline Phosphatase 141 U/L Total Protein 4.8 GM/DL 4.8 GM/DL Albumin 1.8 GM/DL Lipase 154 U/L Total Creatine Kinase 39 U/L Troponin I 0.16 NG/ML Microbiology Date/Time Procedure Status Source Growth 08/11/16 20:55 Aerobic Blood Culture - Preliminary Resulted Blood Peripheral NO GROWTH IN 3 DAYS 08/11/16 20:55 Anaerobic Blood Culture - Preliminary Resulted Blood Peripheral NO GROWTH IN 3 DAYS 08/11/16 21:00 Aerobic Blood Culture - Preliminary Resulted Blood Peripheral NO GROWTH IN 3 DAYS 08/11/16 21:00 Anaerobic Blood Culture - Preliminary Resulted Blood Peripheral NO GROWTH IN 3 DAYS 08/11/16 21:58 Aerobic Blood Culture Received Blood Peripheral Pending 08/11/16 21:58 Anaerobic Blood Culture Received Blood Peripheral Pending 08/12/16 05:15 Urine Culture - Final Complete Urine Catheterized Urine NO GROWTH IN 48 HOURS. Imaging Last Impressions Abdomen X-Ray 08/14/16 0600 Signed Impressions: Service Date/Time: Sunday, August 14, 2016 03:49 - CONCLUSION: Mild gaseous distention of multiple bowel loops, unchanged. Renzo Blair MD Abdomen/Pelvis CT 08/11/16 1513 Signed Impressions: Service Date/Time: Thursday, August 11, 2016 16:15 - CONCLUSION: Mild mural thickening of the colon especially on the right side most characteristic of a mild colitis. Small amount of free fluid around the liver. No free air. Sahil Faria MD GI Procedure 08/11/16 0000 Signed Impressions: Service Date/Time: Thursday, August 11, 2016 20:55 - CONCLUSION: ERCP as above. Sahil Faria MD Chest X-Ray 08/11/16 0000 Signed Impressions: Service Date/Time: Thursday, August 11, 2016 17:12 - CONCLUSION: 1. Minimal basilar atelectasis. No effusion or pneumothorax. Sahil Faria MD Physical Exam CONSTITUTIONAL/GENERAL: This is an adequately nourished patient, in no apparent distress. SKIN: No jaundice, rashes, or lesions. Skin temperature appropriate. Not diaphoretic. EYES: No scleral icterus. ENT: Hearing decreased. Nose without bleeding or purulent drainage. oral mucosae moist CARDIOVASCULAR: Regular rate and rhythm without murmurs, gallops, or rubs. No JVD. Peripheral pulses symmetric. RESPIRATORY/CHEST: Symmetric, unlabored respirations. Clear to auscultation. Breath sounds equal bilaterally. No wheezes, rales, or rhonchi. GASTROINTESTINAL: Abdomen soft, slightly tender to palpation in RUQ with no guarding/rebound moderately distended, non tympanic to percussion No hepato- splenomegaly, or palpable masses. No guarding. Bowel sounds present, active Staples negative GENITOURINARY: Without palpable bladder distension. Ludwig catheter in place with clear yellow urine MUSCULOSKELETAL: Extremities without clubbing, cyanosis, or edema. NEUROLOGICAL: Awake and alert. Motor and sensory grossly within normal limits. Follows commands. Normal speech. Moves all extremities. PSYCHIATRIC: No obvious anxiety/depression. no apparent hallucinations or other psychotic thought process. Assessment & Plan Remarks Cholangitis sp emergent stent placement Sepsis, clinicalyy improved Leukocytosis - 2/2 cholangitis: resolving PCN allergy - rash diarrhea : abx associated -cont, flagyl - chk stool for C.diff - OK to dc to oal abx (levaquin, flagyl) if cont to tolerated po x 24 -48 hrs - anticipate up to 14 days of total abx time Mar Darby RN, MD Aug 14, 2016 14:02
[2016-08-14 18:59] LABS: POTASSIUM 3.8 MEQ/L (3.5-5.1)
[2016-08-14 19:13] LABS: MAGNESIUM 2.2 MG/DL (1.5-2.5)
[2016-08-14 20:01] LABS: C. DIFF EPI 027 PRESUMPTIVE NEGATIVE (NEGATIVE); C. DIFF TOXIN PCR NEGATIVE (NEGATIVE)
--- NOTE | 2016-08-14 20:03 | EC ---
Study Study Date:08/14/2016 STUDY CONCLUSIONS SUMMARY - Left ventricle: The cavity size was normal. Systolic function was moderately to severely reduced. The estimated ejection fraction was in the range of 35% to 40%. Diffuse hypokinesis. - Mitral valve: Mild to moderate regurgitation. - Right ventricle: The cavity size was mildly dilated. Systolic function was mildly reduced. - Tricuspid valve: Mild regurgitation. - Pulmonary arteries: PA peak pressure: 54mm Hg (S). If LV function is below 40, please consider prescribing an ACEI or ARB or document rationale for non-use. PROCEDURE DATA STUDY STATUS: Elective. Procedure: Transthoracic echocardiography. Image quality was good. Scanning was performed from the parasternal, apical, and subcostal acoustic windows. Study completion: The patient tolerated the procedure well. Transthoracic echocardiography. M-mode, complete 2D, complete spectral Doppler, and color Doppler. Height: Height: 63in. Weight: Weight: 165.7lb. Body mass index: BMI: 29.4kg/m^2. Body surface area: BSA: 1.79m^2. Patient status: Inpatient. CARDIAC ANATOMY LEFT VENTRICLE: The cavity size was normal. Systolic function was moderately to severely reduced. The estimated ejection fraction was in the range of 35% to 40%. Diffuse hypokinesis. AORTIC VALVE: Probably trileaflet; mildly calcified leaflets. Doppler: There was no stenosis. Trace to mild regurgitation. Valve area: 1.32cm^2(VTI). Indexed valve area: 0.74cm^2/m^2 (VTI). Valve area: 1.18cm^2 (Vmax). Indexed valve area: 0.66cm^2/m^2 (Vmax). Mean gradient: 3mm Hg (S). MITRAL VALVE: The valve appears to be grossly normal. Doppler: There was no evidence for stenosis. Mild to moderate regurgitation. Peak gradient: 2mm Hg (D). RIGHT VENTRICLE: The cavity size was mildly dilated. Systolic function was mildly reduced. PULMONIC VALVE: Not well visualized. Doppler: Trace regurgitation. TRICUSPID VALVE: The valve appears to be grossly normal. Doppler: There was no evidence for stenosis. Mild regurgitation. PERICARDIUM: There was no pericardial effusion. Patient weight: 165.7lb _Ejection fraction:_ 65-75% _Fractional shortening:_ 32% up to 5Kg 5-11.5Kg 11.6-22.9Kg 23-45Kg 45-57Kg Aortic Root 7-13 <17 13-22 17-27 17-27 LA diam 6-13 <23 24-38 33-47 37-40 RVID 10-17 7-15 7-15 7-18 8-17 LVIDd 12-22 <32 24-38 33-47 37-40 LVPW 2-4 3-6 5-7 6-8 7-8 IVS 2-4 3-6 5-7 6-8 7-8 BASIC MEASUREMENTS ADULT NORMAL Left ventricle LV internal dimension, ED, chordal *39.9 mm 43-52 level, PLAX LV internal dimension, ES, chordal 36.1 mm 23-38 level, PLAX Fractional shortening, chordal level, *10 % >29 PLAX LV posterior wall thickness, ED 8.5 mm IVS/LVPW ratio, ED 0.99 <1.3 Ventricular septum Septal thickness, ED 8.41 mm Aortic valve Leaflet separation 19 mm 15-26 Aorta Root diameter, ED 28 mm Left atrium Anterior-posterior dimension 33 mm Anterior-posterior dimension index 1.84 cm/m^2 <2.2 BASIC MEASUREMENTS ADULT NORMAL Aortic valve Leaflet separation 19 mm 15-26 DOPPLER MEASUREMENTS ADULT NORMAL Main pulmonary artery Pressure, S *54 mm Hg =30 Aortic valve Peak velocity, S 116 cm/s Mean velocity, S 83.3 cm/s VTI, S 24 cm Mean gradient, S 3 mm Hg Valve area, VTI 1.32 cm^2 Valve area index, VTI 0.74 cm^2/m^2 Valve area, Vmax 1.18 cm^2 Valve area index, Vmax 0.66 cm^2/m^2 Mitral valve Peak E-wave velocity 78 cm/s Peak A-wave velocity 68.6 cm/s Deceleration time 180 ms 150-230 Peak gradient, D 2 mm Hg Peak E/A ratio 1.1 Tricuspid valve Regurgitant peak velocity 332 cm/s Peak RV-RA gradient, S 44 mm Hg Maximal regurgitant velocity 332 cm/s Systemic veins Estimated CVP 10 mm Hg Right ventricle RV pressure, S *55 mm Hg <30 Pulmonic valve Peak velocity, S 53.4 cm/s LEGEND: Mean values are shown as u=mean value. Asterisk (*) garcía values outside specified normal range. Prepared and signed by Roberto Carlos Chowdhury [id number]
[2016-08-15] VITALS (9 sets, daily range): BP systolic 153–170; BP diastolic 62–73; PULSE 58–77; RESP 18–22; TEMP 98–98.7; O2SAT 93–99
[2016-08-15] MEDS: metroNIDAZOLE 500 MG INJ 100 ML IV SCH ×2 (00:35→10:01)
[2016-08-15] MEDS: CEFEPIME INJ 2,000 MG in SODIUM CHLORIDE 0.9% INJ 100 ML IV SCH ×2 (00:36→12:00)
[2016-08-15] MEDS: CHLORHEXIDINE GLUCONATE 2 % 1 PACK (2 CLOTHS) TOP SCH (04:00)
[2016-08-15] MEDS: METOCLOPRAMIDE HCL 10 MG/2 ML VIAL IV PUSH SCH ×2 (05:37→14:30)
[2016-08-15] MEDS: LEVOTHYROXINE SODIUM 75 MCG TAB PO SCH (05:37)
[2016-08-15] MEDS: INSULIN ASPART SUPPLEMENTAL SCALE SQ SCH ×3 (05:46→12:00)
--- NOTE | 2016-08-15 07:10 | MB ---
cc: ROBERTO CARLOS HINTON DO DATE OF CONSULTATION August 14, 2016 REASON FOR CONSULTATION Elevation of troponins. HISTORY OF PRESENT ILLNESS Ayala Olvera is a pleasant 80-year-old female who presents to [facility] on August 11, 2016, with abdominal pain going on for about three weeks' time. She states increasing pain over the last three days, specifically along the right upper quadrant with nausea and vomiting. At this time she was noted to be jaundiced in the emergency room and noted to have elevated LFTs and hypotensive with a systolic blood pressure in the 80s. She received 3 liters of normal saline and was started on Levophed for pressor support. She was diagnosed as septic secondary to cholangitis. She underwent ERCP with sphincterotomy and stone removal as well as stent placement. Last night she was noted to have some chest pain which was sharp in nature along her breast bone and down into the epigastric area. At the time troponin was drawn which was 0.16 increasing to 0.48. In seeing her, she states that the chest pain only lasted a few minutes. She currently is resting comfortably without chest pain or abdominal pain. PAST MEDICAL HISTORY 1. Cholelithiasis, choledocholithiasis and pancreatitis. 2. Depression. 3. Hyperlipidemia. PAST SURGICAL HISTORY 1. Appendectomy. 2. Cholecystectomy. 3. Hysterectomy. 4. Recent ERCP with sphincterotomy and stone removal with stent placement. ALLERGIES PENICILLIN. MEDICATIONS 1. Lisinopril 5 mg daily 2. Atenolol 12.5 mg daily 3. Metformin 1000 mg b.i.d. 4. Lipitor 20 mg every night 5. Levemir 10 units every night 6. Aspirin 81 mg daily 7. Tramadol 50 mg every 8 hours as needed 8. Omeprazole 20 mg daily 9. Magnesium oxide 1000 mg b.i.d. 10. Synthroid 75 mcg daily. FAMILY HISTORY Denies premature coronary artery disease or sudden cardiac within the family. SOCIAL HISTORY Denies tobacco abuse, alcohol abuse or drug abuse. REVIEW OF SYSTEMS Fourteen systems were reviewed including osteopathic pertinent positives and negatives above, otherwise negative. PHYSICAL EXAMINATION VITAL SIGNS: Temperature 97.9, heart rate 74, blood pressure 143/63, respirations 22, pulse ox 94% on 2 liters. IN GENERAL: The patient appears well, in no acute distress, alert, awake and oriented x 3. Extraocular muscles intact. Mucous membranes moist. NECK: Supple. No JVD at 45 degrees. No carotid bruits heard bilaterally. Carotid upstroke is brisk in nature. HEART: Regular rate and rhythm. Positive first and second heart sounds with no noted murmurs, gallops or rubs. PMI is nondisplaced. LUNGS: Clear to auscultation bilaterally. No wheezes, rales or rhonchi. ABDOMEN: Soft, mildly tender in the lower part. EXTREMITIES: No clubbing, cyanosis or edema. Femoral and distal pulses intact bilaterally. NEUROLOGIC: No focal deficits. SKIN: Warm, dry and intact. OSTEOPATHIC EXAM: No kyphoscoliosis, lordosis or paraspinal tender points. LABORATORY FINDINGS Hemoglobin 9.4, hematocrit 27.4, platelets 123. INR 1.6. Potassium 3.8, BUN 19, creatinine 0.92. Troponin 0.16 increasing to 0.48. ELECTROCARDIOGRAM (August 14, 2016, 15:55) Sinus rhythm, T-wave inversions inferiorly which may be nonspecific versus possible ischemia. IMPRESSION 1. Cholangitis/choledocholithiasis status post ERCP with sphincterotomy, stone removal and stent placement. 2. Septic shock. 3. Acute pancreatitis. 4. Mild elevation of troponin. 5. Atypical chest pain. 6. Mild T-wave changes on EKG, possibly nonspecific versus due to ischemia. 7. History of diabetes mellitus. RECOMMENDATIONS 1. Ms. Olvera's elevation of troponins is most likely secondary to her recent septic shock, hypotension and need for pressor therapy. 2. She does have mild T-wave inversions anteriorly which may be nonspecific versus due to ischemia. 3. At this time she is unsure if she would want further ischemic evaluation. This will be further discussed with her versus medical management. 4. Further recommendations will be made based on the hospital course. Thank you for allowing me to see Ayala Olvera. If there are any questions, please do not hesitate to call. Roberto Carlos Hinton DO VGP/SSB /12:18 AM /6:52 AM
--- NOTE | 2016-08-15 08:27 | HHI.PR ---
Subjective Remarks neuroscience specialist notes: 80-year-old female with a past medical history significant for cholecystectomy 8 years ago, recurrent CBD stones/obstruction requiring ERCPs/stenting with stent removal done in March [address] Covington and CBD stone fragments were removed at that time. Patient now presents with abdominal pain going on for about 3 weeks which increased in severity over the last 3 days more so in the right upper quadrant along with nausea vomiting. Patient appeared jaundiced in the ER and was noted to have elevated LFTs and was hypotensive with systolic blood pressure in the 80s. She received 3 L of normal saline bolus and was started on Levophed for pressor support after a right IJ central line was placed by ER physician. She was diagnosed to be septic most likely secondary to cholangitis. She did have an elevated lipase as well. Patient was accepted for admission by critical care medicine service. When I came to evaluate patient around 6:15 PM she was laying in the ER stretcher complaining of significant abdominal pain 10 out of 10 in intensity. She had not received any pain medication so far. She had finished her third liter of normal saline and was on Levophed 2 mics per minute. Levaquin infusion was just getting completed and Flagyl infusion was going to be started next. I ordered fentanyl 50 mics IV started with which she had some relief of her abdominal pain. She has been having bowel movements according to her which are brown in color with no fresh blood or melena noted. 08/12: Afebrile.The patient is status post ERCP with sphincterotomy and stone removal last evening and stent placement. Biopsy also obtained for thickened ampulla of Vater to rule out malignant process. Patient's pain well to control this a.m. reports it is 08/12. 08/13: Tmax 97.8. No acute events overnight. Patient's diet was advanced to clear liquids yesterday tolerating it. Leukocytosis resolving ID following Dr. Post. Lipase levels normalized this a.m. Hospitalist Notes: 08/14: Seen in her bedroom, in the presence of her Mr. Miguel Angel Olvera no complaint, no nausea, vomit or diarrhea, discussed also with nurse Miss Teague continue electrolyte replacement and following. 08/15: Status Post air traffic control specialist center consult by Doctor Chowdhury and recommended with Diagnosis of Mild elevation of Troponin and Atypical Chest pain most likely secondary to recent septic shock and Hypotension and need for pressor therapy, Mild T wave inversions anteriorly which may be non specific ID specialist following, Sepsis clinically improved, Leukocytosis and Cholangitis resolving, Diarrhea antibiotic associated, recommended to continue Flagyl Check stool for C Diff, Okay to Discharge Oral antibiotics Levaquin or Flagyl if tolerates by mouth, anticipate up to 14 days total antibiotic time. Today seen by ID specialist Doctor Dominique recommended to Discontinue Central line, DC Ludwig, Continue Flagyl by mouth for another 14 days and Levaquin to start for 14 days, patient do not want to wait in the Hospital wants to be released now and refuse any management at this time, her in the room will discharge home on [facility] and follow as outpatient by PCP. No Nausea, vomit or diarrhea. Objective Vital Signs Date Time Temp Pulse Resp B/P Pulse Ox O2 Delivery O2 Flow Rate FiO2 08/15/16 06:00 77 08/15/16 04:00 58 08/15/16 04:00 98.1 58 20 158/73 96 08/15/16 02:00 66 08/15/16 00:00 70 08/15/16 00:00 98.7 70 22 170/72 93 08/14/16 22:00 77 08/14/16 20:31 94 08/14/16 20:00 76 08/14/16 20:00 98.8 76 20 173/74 93 Arterial Line 08/14/16 19:00 93 Nasal Cannula 2.00 08/14/16 18:00 73 08/14/16 16:00 97.9 74 22 143/63 94 121/76 08/14/16 16:00 74 08/14/16 14:00 74 08/14/16 12:00 98.1 70 20 160/70 98 139/69 08/14/16 12:00 70 08/14/16 10:00 75 08/14/16 09:54 99 Nasal Cannula 2.00 I/O 08/14/16 08/14/16 08/14/16 08/15/16 08/15/16 08/15/16 07:00 15:00 23:00 07:00 15:00 23:00 Intake Total 471 ml 1614 ml 552 ml 497 ml Output Total 850 ml 1200 ml 900 ml 1000 ml Balance -379 ml 414 ml -348 ml -503 ml Intake Oral 600 ml 40 ml 30 ml IV Total 471 ml 1014 ml 512 ml 467 ml Output Urine Total 850 ml 1200 ml 900 ml 1000 ml # Bowel Movements 2 0 0 Result Diagram: 08/14/16 0345 08/14/16 1700 Imaging Last Impressions Abdomen X-Ray 08/14/16 0600 Signed Impressions: Service Date/Time: Sunday, August 14, 2016 03:49 - CONCLUSION: Mild gaseous distention of multiple bowel loops, unchanged. Renzo Blair MD Abdomen/Pelvis CT 08/11/16 1513 Signed Impressions: Service Date/Time: Thursday, August 11, 2016 16:15 - CONCLUSION: Mild mural thickening of the colon especially on the right side most characteristic of a mild colitis. Small amount of free fluid around the liver. No free air. Sahil Faria MD GI Procedure 08/11/16 0000 Signed Impressions: Service Date/Time: Thursday, August 11, 2016 20:55 - CONCLUSION: ERCP as above. Sahil Faria MD Chest X-Ray 08/11/16 0000 Signed Impressions: Service Date/Time: Thursday, August 11, 2016 17:12 - CONCLUSION: 1. Minimal basilar atelectasis. No effusion or pneumothorax. Sahil Faria MD Procedures status post ERCP with Sphincterotomy and stone removal, stent placement Other Results Laboratory Tests Test 08/11/16 08/11/16 08/11/16 08/12/16 15:10 22:30 23:44 03:22 Prothrombin Time 18.1 SEC Prothromb Time International 1.6 RATIO Ratio Activated Partial 32.9 SEC Thromboplast Time Gamma Glutamyl Transpeptidase 706 U/L Nasal Screen MRSA (PCR) NEGATIVE Lactic Acid Level 2.7 mmol/L Metamyelocytes 2 % Myelocytes 1 % Red Cell Morphology Comment NORMAL Test 08/12/16 08/13/16 08/14/16 08/14/16 05:15 03:30 03:45 17:00 Urine Color YELLOW Urine Turbidity HAZY Urine pH 5.0 Urine Specific Merna 1.007 Urine Protein NEG mg/dL Urine Glucose (UA) NEG mg/dL Urine Ketones NEG mg/dL Urine Occult Blood TRACE Urine Nitrite NEG Urine Bilirubin NEG Urine Urobilinogen LESS THAN 2.0 MG/DL Urine Leukocyte Esterase NEG Urine RBC 1 /hpf Urine WBC 3 /hpf Urine Squamous Epithelial <1 /hpf Cells Urine Amorphous Sediment RARE Urine Bacteria RARE /hpf Urine Hyaline Casts 1 /lpf Urine Granular Casts 2 /lpf Urine Mucus FEW /lpf Microscopic Urinalysis Comment CATH-CULTURE IND Neutrophils (%) (Auto) 87.5 % Lymphocytes (%) (Auto) 5.4 % Monocytes (%) (Auto) 3.7 % Eosinophils (%) (Auto) 3.2 % Basophils (%) (Auto) 0.2 % Neutrophils # (Auto) 10.7 TH/MM3 Lymphocytes # (Auto) 0.7 TH/MM3 Monocytes # (Auto) 0.5 TH/MM3 Eosinophils # (Auto) 0.4 TH/MM3 Basophils # (Auto) 0.0 TH/MM3 CBC Comment AUTO DIFF Differential Total Cells 100 Counted Neutrophils % (Manual) 75 % Band Neutrophils % 19 % Lymphocytes % 2 % Monocytes % 4 % Neutrophils # (Manual) 11.5 TH/MM3 Differential Comment FINAL DIFF MANUAL Toxic Vacuolation PRESENT Dohle Bodies PRESENT Platelet Estimate LOW Platelet Morphology Comment NORMAL Margot Cells 1+ Total Bilirubin 0.9 MG/DL Aspartate Amino Transf 28 U/L (AST/SGOT) Alanine Aminotransferase 90 U/L (ALT/SGPT) Alkaline Phosphatase 141 U/L Albumin 1.8 GM/DL Lipase 154 U/L White Blood Count 10.9 TH/MM3 Red Blood Count 3.19 MIL/MM3 Hemoglobin 9.4 GM/DL Hematocrit 27.4 % Mean Corpuscular Volume 85.9 FL Mean Corpuscular Hemoglobin 29.5 PG Mean Corpuscular Hemoglobin 34.3 % Concent Red Cell Distribution Width 14.8 % Platelet Count 123 TH/MM3 Mean Platelet Volume 9.0 FL Sodium Level 141 MEQ/L Chloride Level 109 MEQ/L Carbon Dioxide Level 21.7 MEQ/L Anion Gap 10 MEQ/L Blood Urea Nitrogen 19 MG/DL Creatinine 0.92 MG/DL Estimat Glomerular Filtration 59 ML/MIN Rate Random Glucose 104 MG/DL Calcium Level 7.3 MG/DL Protein Corrected Calcium 8.6 MG/DL Total Protein 4.8 GM/DL Stool C. difficile Toxin (PCR) NEGATIVE Stl C. difficile Toxin PRESUMPTIVE Epiderm 027 NEGATIVE Potassium Level 3.8 MEQ/L Phosphorus Level 2.9 MG/DL Magnesium Level 2.2 MG/DL Total Creatine Kinase 39 U/L Troponin I 0.48 NG/ML Objective Remarks GENERAL: Well-nourished, well-developed elderly female . Hard of hearing in no apparent distress SKIN: Focused skin assessment reveals no rash and nodules. Multiple ecchymosis areas on arms and legs. HEAD: Atraumatic. Normocephalic. EYES: Pupils equal and round. Positive scleral icterus. No injection or drainage. ENT: No nasal bleeding or discharge. Mucous membranes pink and moist. NECK: Trachea midline. No JVD. CARDIOVASCULAR: Regular rate and rhythm. No murmur appreciated. RESPIRATORY: No accessory muscle use. Clear to auscultation. Breath sounds equal bilaterally. GASTROINTESTINAL: Abdomen soft. Patient has a mild tenderness in the lower abdomen without guarding. MUSCULOSKELETAL: No obvious deformities. No clubbing. No cyanosis. No edema. NEUROLOGICAL: Awake and alert. No obvious cranial nerve deficits. Motor grossly within normal limits. Normal speech. PSYCHIATRIC: Appropriate mood and affect; insight and judgment normal. Medications and IVs Current Medications Medications (Trade) Dose Ordered Sig/Salvatore Route Start Time Stop Time Status Last Admin (NS Flush) 2 ml UNSCH PRN IV FLUSH 08/11/16 18:45 08/13/16 12:58 (NS Flush) 2 ml BID IV FLUSH 08/11/16 21:00 08/15/16 10:01 (Protonix Inj) 40 mg DAILY IV 08/11/16 18:45 08/15/16 10:00 Miscellaneous Information 1 Q361D XX 08/11/16 18:45 (Chlorhexidine 2% Cloth) 3 pack Taper DAILY@04 TOP 08/12/16 04:00 08/08/17 03:59 08/14/16 04:00 (Chlorhexidine 2% Cloth) 3 pack UNSCH PRN TOP 08/11/16 18:45 (Brethine Inj) 1 mg UNSCH PRN SQ 08/11/16 18:45 (NovoLOG SUPPLEMENTAL SCALE) 1 Q6HR SQ 08/12/16 00:00 (D50w (Vial) Inj) 25 ml UNSCH PRN IV 08/11/16 19:15 (Glucagon Inj) 1 mg UNSCH PRN IM/SQ 08/11/16 19:15 (Dilaudid Pf Inj) 0.5 mg Q4H PRN IV PUSH 08/11/16 20:15 08/13/16 18:29 (fentaNYL INJ) 50 mcg Q4H PRN IV PUSH 08/11/16 20:10 08/12/16 17:50 (Heparin Inj) 5,000 units Q12HR SQ 08/13/16 09:00 08/15/16 10:02 (Synthroid) 75 mcg DAILY@06 PO 08/13/16 06:00 08/15/16 05:37 (Zofran Inj) 4 mg Q6H PRN IV PUSH 08/13/16 08:30 08/14/16 03:10 (Dulcolax Supp) 10 mg DAILY PRN RECTAL 08/13/16 09:45 (Reglan Inj) 5 mg Q8HR IV PUSH 08/13/16 14:00 08/15/16 14:30 (Colace Liq) 100 mg Q12HR PO 08/13/16 12:15 08/15/16 10:00 Aspirin 162 mg 162 mg DAILY CHEW 08/15/16 09:00 08/15/16 10:00 Potassium Chloride 100 ml @ 50 mls/hr Q2H PRN IV 08/14/16 05:30 Potassium Chloride 100 ml @ 50 mls/hr Q2H PRN IV 08/14/16 05:30 Potassium Chloride 100 ml @ 25 mls/hr UNSCH PRN IV 08/14/16 05:30 Potassium Chloride 100 ml @ 50 mls/hr Q2H PRN IV 08/14/16 05:30 (Magnesium Sulfate Inj/NS Inj) 100 ml @ 50 mls/hr UNSCH PRN IV 08/14/16 05:30 Magnesium Oxide 800 mg 800 mg UNSCH PRN PO 08/14/16 05:30 (Magnesium Sulfate Inj/NS Inj) 100 ml @ 50 mls/hr UNSCH PRN IV 08/14/16 05:30 Potassium Phosphate 2000 mg 2,000 mg Q4H PRN PO 08/14/16 05:30 (Sodium Phosphate Inj/NS 250 ml Inj) 250 ml @ 42 mls/hr UNSCH PRN IV 08/14/16 05:30 Potassium Phosphate 2000 mg 2,000 mg UNSCH PRN PO/TUBE 08/14/16 05:30 (Potassium Phosphate Inj/NS 250 ml Inj) 260 ml @ 42 mls/hr UNSCH PRN IV 08/14/16 05:30 08/14/16 05:53 (Levaquin) 500 mg DAILY PO 08/15/16 12:45 08/15/16 14:30 (Flagyl) 500 mg Q8HR PO 08/15/16 14:00 08/15/16 14:30 (Lopressor) 12.5 mg Q12HR PO 08/15/16 13:45 08/15/16 14:31 A/P Assessment and Plan 1. Intractable Abdominal pain Improved. 2. Cholangitis/Choledocholithiasis status post ERCP with Sphincterotomy and stone removal, stent placement History of CBD stones/obstruction status post previous ERCP and stenting with stent removal in March 2016 GI specialist following. stable. 3. Septic shock. Hydration given in ER and Intensive Care Unit, vasopressor given Levophed, ID specialist following on Cefepime and Flagyl, Leukocytosis trending down. recommended by ID specialist to continue Flagyl and Levaquin for 14 days more at home. 4. Acute Pancreatitis probably secondary to CBD stones Improved 5. Possible mild colitis in the ascending Colon followed by GI specialist continue antibiotics. 6. DM II continue sliding scale. controlled. 7. Acute Kidney Injury Improved. 8. Hypothyroidism to continue Hormonal replacement 9. electrolyte derangement replaced Discussed with Patient and her Mr. Miguel Angel Olvera in the room, also nurse Miss Brink, all questions answered to the best of my abilities, the patient is upset and wants to leave the Hospital at this time, do not want to wait I agree will continue antibiotics for 14 days and discharge Home on [facility] for Physical Therapy and skilled nurse. Prophylaxis: PPI/SCDs. SQ heparin 5000u q 12 hr Discharge Planning Discharge Home on [facility] for PT and Skilled nurse. Ariel Quijano MD Aug 15, 2016 08:27
[2016-08-15] MEDS ORDERED: ASPIRIN 81 MG CHEW TAB CHEW SCH (09:00)
[2016-08-15] MEDS: DOCUSATE SODIUM 100 MG/10 ML UDC PO SCH (10:00)
[2016-08-15] MEDS: PANTOPRAZOLE SODIUM 40 MG VIAL IV SCH (10:00)
[2016-08-15] MEDS: SODIUM CHLORIDE 0.9% FLUSH 10 ML FLUSH IV FLUSH SCH (10:01)
[2016-08-15] MEDS: HEPARIN SODIUM - SQ 10,000 UNITS/ML VIAL SQ SCH (10:02)
--- NOTE | 2016-08-15 12:37 | HHI.IDPN ---
Subjective [facility]ive Remarks [facility] 80 y/[facility] with acute cholangitis s.p stent placement. Overnight events reviewed with RN. No fever No rash No diarrhea Started on full diet and tolerated well. Wants to go home. Stool Cdiff negative. Antibiotics cefepime flagyl Lines Line sites with no e.o infection. Past Medical History Depression, High Cholesterol, Diabetes CBD stones status post multiple ERCPs with stenting and stone removal Allergies: Coded Allergies: Penicillin (Verified Allergy, Mild, 08/11/16) Objective . Vital Signs Date Time Temp Pulse Resp B/P Pulse Ox O2 Delivery O2 Flow Rate FiO2 08/15/16 10:00 69 08/15/16 08:00 74 08/15/16 08:00 98.1 76 20 153/67 96 08/15/16 07:00 97 Nasal Cannula 2.00 08/15/16 06:00 77 08/15/16 04:00 58 08/15/16 04:00 98.1 58 20 158/73 96 08/15/16 02:00 66 08/15/16 00:00 70 08/15/16 00:00 98.7 70 22 170/72 93 08/14/16 22:00 77 08/14/16 20:31 94 08/14/16 20:00 76 08/14/16 20:00 98.8 76 20 173/74 93 Arterial Line 08/14/16 19:00 93 Nasal Cannula 2.00 08/14/16 18:00 73 08/14/16 16:00 97.9 74 22 143/63 94 121/76 08/14/16 16:00 74 08/14/16 14:00 74 08/14/16 08/14/16 08/15/16 15:00 23:00 07:00 Intake Total 1614 ml 552 ml 497 ml Output Total 1200 ml 900 ml 1000 ml Balance 414 ml -348 ml -503 ml Intake Oral 600 ml 40 ml 30 ml IV Total 1014 ml 512 ml 467 ml Output Urine Total 1200 ml 900 ml 1000 ml # Bowel Movements 2 0 0 . Laboratory Tests Test 08/14/16 03:45 White Blood Count 10.9 TH/MM3 Red Blood Count 3.19 MIL/MM3 Hemoglobin 9.4 GM/DL Hematocrit 27.4 % Mean Corpuscular Volume 85.9 FL Mean Corpuscular Hemoglobin 29.5 PG Mean Corpuscular Hemoglobin 34.3 % Concent Red Cell Distribution Width 14.8 % Platelet Count 123 TH/MM3 Mean Platelet Volume 9.0 FL Laboratory Tests Test 08/14/16 08/14/16 08/14/16 03:45 12:23 17:00 Sodium Level 141 MEQ/L Potassium Level 3.2 MEQ/L 3.8 MEQ/L Chloride Level 109 MEQ/L Carbon Dioxide Level 21.7 MEQ/L Anion Gap 10 MEQ/L Blood Urea Nitrogen 19 MG/DL Creatinine 0.92 MG/DL Estimat Glomerular Filtration 59 ML/MIN Rate Random Glucose 104 MG/DL Calcium Level 7.3 MG/DL Protein Corrected Calcium 8.6 MG/DL Phosphorus Level 1.3 MG/DL 2.9 MG/DL Magnesium Level 1.8 MG/DL 2.2 MG/DL Total Creatine Kinase 39 U/L 31 U/L 39 U/L Troponin I 0.16 NG/ML 0.31 NG/ML 0.48 NG/ML Total Protein 4.8 GM/DL Microbiology Date/Time Procedure Status Source Growth 08/14/16 17:00 Received Stool Stool Pending 08/14/16 17:00 Cryptosporidium Exam Resulted Stool Stool Pending 08/14/16 17:00 Stool Pus (RADHA) - Final Resulted Stool Stool RARE WBC 08/14/16 17:00 Giardia Antigen (RADHA) Resulted Stool Stool Pending Imaging Last Impressions Abdomen X-Ray 08/14/16 0600 Signed Impressions: Service Date/Time: Sunday, August 14, 2016 03:49 - CONCLUSION: Mild gaseous distention of multiple bowel loops, unchanged. Renzo Blair MD Abdomen/Pelvis CT 08/11/16 1513 Signed Impressions: Service Date/Time: Thursday, August 11, 2016 16:15 - CONCLUSION: Mild mural thickening of the colon especially on the right side most characteristic of a mild colitis. Small amount of free fluid around the liver. No free air. Sahil Faria MD GI Procedure 08/11/16 0000 Signed Impressions: Service Date/Time: Thursday, August 11, 2016 20:55 - CONCLUSION: ERCP as above. Sahil Faria MD Chest X-Ray 08/11/16 0000 Signed Impressions: Service Date/Time: Thursday, August 11, 2016 17:12 - CONCLUSION: 1. Minimal basilar atelectasis. No effusion or pneumothorax. Sahil Faria MD Physical Exam CONSTITUTIONAL/GENERAL: This is an adequately nourished patient, in no apparent distress. SKIN: No jaundice, rashes, or lesions. Skin temperature appropriate. Not diaphoretic. EYES: No scleral icterus. ENT: Hearing decreased. Nose without bleeding or purulent drainage. oral mucosae moist CARDIOVASCULAR: Regular rate and rhythm without murmurs, gallops, or rubs. No JVD. Peripheral pulses symmetric. RESPIRATORY/CHEST: Symmetric, unlabored respirations. Clear to auscultation. Breath sounds equal bilaterally. No wheezes, rales, or rhonchi. GASTROINTESTINAL: Abdomen soft, slightly tender to palpation in RUQ with no guarding/rebound moderately distended, non tympanic to percussion No hepato- splenomegaly, or palpable masses. No guarding. Bowel sounds present, active Staples negative GENITOURINARY: Without palpable bladder distension. Ludwig catheter in place with clear yellow urine MUSCULOSKELETAL: Extremities without clubbing, cyanosis, or edema. NEUROLOGICAL: Awake and alert. Motor and sensory grossly within normal limits. Follows commands. Normal speech. Moves all extremities. PSYCHIATRIC: No obvious anxiety/depression. no apparent hallucinations or other psychotic thought process. Assessment & Plan Remarks Acute Cholangitis s/p emergent stent placement Sepsis, clinicalyy improved Leukocytosis - 2/2 cholangitis: resolving PCN allergy - rash diarrhea : abx associated Recs Tolerating full diet. DC IVF DC Central line. DC Ludwig. Reviewed Dr. Jia Post DC recs. Continue flagyl change to oral for another 14 days total. Start Levaquin oral for another 14 days total. Follow stool studies: Call ID iron carrier if any tests positive over the weekend. PT/OT, OOB. Decrease pain meds. dw RN: above, hopefully home in next day or two. Will sign off please call back if any change in clinical condition. covering over the weekend for . Gena Fox MD Aug 15, 2016 12:36
[2016-08-15] MEDS ORDERED: LEVOFLOXACIN 500 MG TAB PO SCH (12:45)
--- NOTE | 2016-08-15 13:09 | HHI.GIFU ---
Subjective Remarks Patient alert in the bed. She reports that she is being discharged today. She denies any nausea, vomiting, abdominal pain. She is tolerating a regular diet. She has had multiple bowel movements. Her stomach distention has improved. Of note she has not been out of bed yet in the nurse reports that she would not feed herself this morning. Objective Vitals I&O Vital Signs Date Time Temp Pulse Resp B/P Pulse Ox O2 Delivery O2 Flow Rate FiO2 08/15/16 10:00 69 08/15/16 08:00 74 08/15/16 08:00 98.1 76 20 153/67 96 08/15/16 07:00 97 Nasal Cannula 2.00 08/15/16 06:00 77 08/15/16 04:00 58 08/15/16 04:00 98.1 58 20 158/73 96 08/15/16 02:00 66 08/15/16 00:00 70 08/15/16 00:00 98.7 70 22 170/72 93 08/14/16 22:00 77 08/14/16 20:31 94 08/14/16 20:00 76 08/14/16 20:00 98.8 76 20 173/74 93 Arterial Line 08/14/16 19:00 93 Nasal Cannula 2.00 08/14/16 18:00 73 08/14/16 16:00 97.9 74 22 143/63 94 121/76 08/14/16 16:00 74 08/14/16 14:00 74 I/O 08/14/16 08/14/16 08/14/16 08/15/16 08/15/16 08/15/16 07:00 15:00 23:00 07:00 15:00 23:00 Intake Total 471 ml 1614 ml 552 ml 497 ml Output Total 850 ml 1200 ml 900 ml 1000 ml Balance -379 ml 414 ml -348 ml -503 ml Intake Oral 600 ml 40 ml 30 ml IV Total 471 ml 1014 ml 512 ml 467 ml Output Urine Total 850 ml 1200 ml 900 ml 1000 ml # Bowel Movements 2 0 0 Laboratory Laboratory Tests Test 08/14/16 17:00 Stool C. difficile Toxin (PCR) NEGATIVE Stl C. difficile Toxin PRESUMPTIVE Epiderm 027 NEGATIVE Potassium Level 3.8 Phosphorus Level 2.9 Magnesium Level 2.2 Total Creatine Kinase 39 Troponin I 0.48 Date/Time Procedure Status Source Growth 08/14/16 17:00 Cryptosporidium Exam Resulted Stool Stool Pending 08/14/16 17:00 Stool Pus (RADHA) - Final Resulted Stool Stool RARE WBC 08/14/16 17:00 Giardia Antigen (RADHA) Resulted Stool Stool Pending 08/14/16 17:00 Received Stool Stool Pending 08/12/16 05:15 Urine Culture - Final Complete Urine Catheterized Urine NO GROWTH IN 48 HOURS. 08/11/16 21:58 Aerobic Blood Culture Received Blood Peripheral Pending 08/11/16 21:58 Anaerobic Blood Culture Received Blood Peripheral Pending 08/11/16 21:00 Aerobic Blood Culture - Preliminary Resulted Blood Peripheral NO GROWTH IN 4 DAYS 08/11/16 21:00 Anaerobic Blood Culture - Preliminary Resulted Blood Peripheral NO GROWTH IN 4 DAYS Imaging Last Impressions Abdomen X-Ray 08/14/16 0600 Signed Impressions: Service Date/Time: Sunday, August 14, 2016 03:49 - CONCLUSION: Mild gaseous distention of multiple bowel loops, unchanged. Renzo Blair MD Abdomen/Pelvis CT 08/11/16 1513 Signed Impressions: Service Date/Time: Thursday, August 11, 2016 16:15 - CONCLUSION: Mild mural thickening of the colon especially on the right side most characteristic of a mild colitis. Small amount of free fluid around the liver. No free air. Sahil Faria MD GI Procedure 08/11/16 0000 Signed Impressions: Service Date/Time: Thursday, August 11, 2016 20:55 - CONCLUSION: ERCP as above. Sahil Faria MD Chest X-Ray 08/11/16 0000 Signed Impressions: Service Date/Time: Thursday, August 11, 2016 17:12 - CONCLUSION: 1. Minimal basilar atelectasis. No effusion or pneumothorax. Sahil Faria MD Physical Exam HEENT: Normocephalic; atraumatic; no jaundice. CHEST: CTA CARDIAC: RRR ABDOMEN: Soft, distended, but much improved. Hypoactive bowel sounds, no hepatosplenomegaly. EXTREMITIES: No clubbing, cyanosis, or edema. SKIN: Normal; no rash; no jaundice. 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 Assessment and Plan Plan ASSESSMENT: - Cholangitis, Choledocholithiasis. Abdomen/Pelvis CT (08/11/16)----> Mild mural thickening of the colon especially on the right side most characteristic of a mild colitis. Small amount of free fluid around the liver. No free air. S/ P ERCP with sphincterotomy, stone removal, stent placement (08/11/16)----> CBD Dilation, stone, puss, prominent ampulla. Pathology from prominent ampulla, ulcerated and acute inflamed glandular mucosa with architectural distortion and stromal hemorrhage, negative for malignancy. LFTs improved. WBC improved. Levaquin/ flagyl. - Elevated LFTs secondary to above. S/P ERCP as above. LFTs improving. - Pancreatitis, likely related to choledocholithiasis. Pt with hx of cholecystectomy. S/P ERCP as above. IMPROVED. - Sepsis/Leukocytosis. Improved. On levaquin/falgyl - ? Colitis, ascending colon on CT. Levaquin, Flagyl. CDiff negative. - ? Ileus/Abdominal distention, worsening. IMPROVED. Abdomen X-Ray (08/14/16)--- -> Mild gaseous distention of multiple bowel loops, unchanged. Reglan, miralax, colace for suspected ileus. - ALKA with electrolyte abnormalities. IMPROVED. Per CCM - DM, Hypothyroidism per primary. Per CCM PLAN: - Regular consistency diet - Cont. Reglan - Cont. Miralax - Cont. Colace - Cont. PPI - Cont. Flagyl, Levaquin per ID recommendatins - GI will sign off, please reconsult as needed - Pt seen and examined by Dr. Cam and myself and this note is written on his behalf Massiel Shahid Aug 15, 2016 13:09
--- NOTE | 2016-08-15 13:43 | PD.CARD.PN ---
Subjective Subjective Remarks Doing well, no chest pain, no shortness of breath Objective Medications Current Medications Medications (Trade) Dose Ordered Sig/Salvatore Route Start Time Stop Time Status Last Admin (NS Flush) 2 ml UNSCH PRN IV FLUSH 08/11/16 18:45 08/13/16 12:58 (NS Flush) 2 ml BID IV FLUSH 08/11/16 21:00 08/15/16 10:01 (Protonix Inj) 40 mg DAILY IV 08/11/16 18:45 08/15/16 10:00 Miscellaneous Information 1 Q361D XX 08/11/16 18:45 (Chlorhexidine 2% Cloth) 3 pack Taper DAILY@04 TOP 08/12/16 04:00 08/08/17 03:59 08/14/16 04:00 (Chlorhexidine 2% Cloth) 3 pack UNSCH PRN TOP 08/11/16 18:45 (Brethine Inj) 1 mg UNSCH PRN SQ 08/11/16 18:45 (NovoLOG SUPPLEMENTAL SCALE) 1 Q6HR SQ 08/12/16 00:00 (D50w (Vial) Inj) 25 ml UNSCH PRN IV 08/11/16 19:15 (Glucagon Inj) 1 mg UNSCH PRN IM/SQ 08/11/16 19:15 (Dilaudid Pf Inj) 0.5 mg Q4H PRN IV PUSH 08/11/16 20:15 08/13/16 18:29 (fentaNYL INJ) 50 mcg Q4H PRN IV PUSH 08/11/16 20:10 08/12/16 17:50 (Heparin Inj) 5,000 units Q12HR SQ 08/13/16 09:00 08/15/16 10:02 (Synthroid) 75 mcg DAILY@06 PO 08/13/16 06:00 08/15/16 05:37 (Zofran Inj) 4 mg Q6H PRN IV PUSH 08/13/16 08:30 08/14/16 03:10 (Dulcolax Supp) 10 mg DAILY PRN RECTAL 08/13/16 09:45 (Reglan Inj) 5 mg Q8HR IV PUSH 08/13/16 14:00 08/15/16 05:37 (Colace Liq) 100 mg Q12HR PO 08/13/16 12:15 08/15/16 10:00 Aspirin 162 mg 162 mg DAILY CHEW 08/15/16 09:00 08/15/16 10:00 Potassium Chloride 100 ml @ 50 mls/hr Q2H PRN IV 08/14/16 05:30 Potassium Chloride 100 ml @ 50 mls/hr Q2H PRN IV 08/14/16 05:30 Potassium Chloride 100 ml @ 25 mls/hr UNSCH PRN IV 08/14/16 05:30 Potassium Chloride 100 ml @ 50 mls/hr Q2H PRN IV 08/14/16 05:30 (Magnesium Sulfate Inj/NS Inj) 100 ml @ 50 mls/hr UNSCH PRN IV 08/14/16 05:30 Magnesium Oxide 800 mg 800 mg UNSCH PRN PO 08/14/16 05:30 (Magnesium Sulfate Inj/NS Inj) 100 ml @ 50 mls/hr UNSCH PRN IV 08/14/16 05:30 Potassium Phosphate 2000 mg 2,000 mg Q4H PRN PO 08/14/16 05:30 (Sodium Phosphate Inj/NS 250 ml Inj) 250 ml @ 42 mls/hr UNSCH PRN IV 08/14/16 05:30 Potassium Phosphate 2000 mg 2,000 mg UNSCH PRN PO/TUBE 08/14/16 05:30 (Potassium Phosphate Inj/NS 250 ml Inj) 260 ml @ 42 mls/hr UNSCH PRN IV 08/14/16 05:30 08/14/16 05:53 (Levaquin) 500 mg DAILY PO 08/15/16 12:45 (Flagyl) 500 mg Q8HR PO 08/15/16 14:00 Vital Signs / I&O Vital Signs Date Time Temp Pulse Resp B/P Pulse Ox O2 Delivery O2 Flow Rate FiO2 08/15/16 10:00 69 08/15/16 08:00 74 08/15/16 08:00 98.1 76 20 153/67 96 08/15/16 07:00 97 Nasal Cannula 2.00 08/15/16 06:00 77 08/15/16 04:00 58 08/15/16 04:00 98.1 58 20 158/73 96 08/15/16 02:00 66 08/15/16 00:00 70 08/15/16 00:00 98.7 70 22 170/72 93 08/14/16 22:00 77 08/14/16 20:31 94 08/14/16 20:00 76 08/14/16 20:00 98.8 76 20 173/74 93 Arterial Line 08/14/16 19:00 93 Nasal Cannula 2.00 08/14/16 18:00 73 08/14/16 16:00 97.9 74 22 143/63 94 121/76 08/14/16 16:00 74 08/14/16 14:00 74 I/O 08/14/16 08/14/16 08/14/16 08/15/16 08/15/16 08/15/16 07:00 15:00 23:00 07:00 15:00 23:00 Intake Total 471 ml 1614 ml 552 ml 497 ml Output Total 850 ml 1200 ml 900 ml 1000 ml Balance -379 ml 414 ml -348 ml -503 ml Intake Oral 600 ml 40 ml 30 ml IV Total 471 ml 1014 ml 512 ml 467 ml Output Urine Total 850 ml 1200 ml 900 ml 1000 ml # Bowel Movements 2 0 0 Physical Exam GENERAL: NAD, AAOx3 SKIN: Warm and dry. HEAD: Atraumatic. Normocephalic. EYES: Pupils equal and round. No scleral icterus. No injection or drainage. ENT: No nasal bleeding or discharge. Mucous membranes pink and moist. NECK: Trachea midline. No JVD. CARDIOVASCULAR: Regular rate and rhythm. RESPIRATORY: No accessory muscle use. Decreased breath sounds bilaterally GASTROINTESTINAL: Abdomen soft, non-tender, nondistended. Hepatic and splenic margins not palpable. MUSCULOSKELETAL: Extremities without clubbing, cyanosis, or edema. No obvious deformities. NEUROLOGICAL: Awake and alert. No obvious cranial nerve deficits. Motor grossly within normal limits. Five out of 5 muscle strength in the arms and legs. Normal speech. PSYCHIATRIC: Appropriate mood and affect; insight and judgment normal. Laboratory Laboratory Tests Test 08/14/16 17:00 Stool C. difficile Toxin (PCR) NEGATIVE Stl C. difficile Toxin PRESUMPTIVE Epiderm 027 NEGATIVE Potassium Level 3.8 MEQ/L Phosphorus Level 2.9 MG/DL Magnesium Level 2.2 MG/DL Total Creatine Kinase 39 U/L Troponin I 0.48 NG/ML Assessment and Plan Problem List: (1) Acute cholangitis due to calculus of bile duct with obstruction (2) Obstructive jaundice (3) Hypotension (4) History of non-Hodgkin's lymphoma (5) HTN (hypertension) (6) Bile duct calculus with obstruction (7) Elevated troponin Assessment and Plan 1) Mildly elevated troponin with atypical chest pain [place] to be due to overall acute illness with septic shock 2) Did have mild EKG changes compared to previous 3) Because of the troponin and EKG changes, I discussed with her and her about an ischemic evaluation, whether that be stress test or cardiac catheterization, does not want either at this time... will continue with medical management 4) Will place on ASA/BB 5) Patient wants to follow up outpatient cardiology at the [place] office, will call for appointment 6) Will see PRN, call with questions Problem Qualifiers (1) Hypotension: Qualified Code: I95.9 - Hypotension, unspecified hypotension type Roberto Carlos Chowdhury DO Aug 15, 2016 13:43
[2016-08-15] MEDS ORDERED: METOPROLOL TARTRATE 25 MG TAB PO SCH (13:45)
[2016-08-15] MEDS ORDERED: metroNIDAZOLE 500 MG TAB PO SCH (14:00)
[2016-08-15] MEDS ORDERED: PROT40TA PO (15:49)
[2016-08-15] MEDS ORDERED: LEVA500T PO (15:49)
[2016-08-15] MEDS ORDERED: METO25TA3 PO (15:49)
[2016-08-15] MEDS ORDERED: METR-1 PO (15:49)
[2016-08-15] MEDS ORDERED: SYMB160A INH (15:49)
--- NOTE | 2016-08-15 15:52 | HHI.FF ---
Face to Face Verification Diagnosis: (1) Hypotension (2) Acute cholangitis due to calculus of bile duct with obstruction (3) Septic shock Physical Therapy Order: Evaluate and Treat, Improve ambulation, Strength and gait training Home Health Nursing Order: Medical education Signs/symptoms of disease process Medication education-adverse effect Nursing assessment with vital signs I have seen patient Alpa Steiner on 08/15/16. My clinical findings support the need for the requested home health care services because: Ltd mobility - disease progression Deconditioned w/ increased weakness High risk of falls I certify that my clinical findings support that this patient is homebound because: Unsteady gait/balance Unsafe to leave home unassisted Ariel Quijano MD Aug 15, 2016 15:52
--- NOTE | 2016-08-15 15:55 | HHI.DS ---
Discharge Summary Admission Date Aug 11, 2016 at 17:15 Discharge Date: Aug 15, 2016 Admitting Diagnosis cholangitis,choledocholithiasis,persistent hypotension (1) Hypotension ICD Code: I95.9 Diagnosis: Principal (2) Obstructive jaundice ICD Code: K83.8 Diagnosis: Principal (3) Elevated troponin ICD Code: R74.8 Diagnosis: Principal (4) Acute cholangitis due to calculus of bile duct with obstruction ICD Code: K80.37 Diagnosis: Principal (5) Septic shock ICD Code: A41.9 Diagnosis: Principal Procedures ERCP with Sphincterotomy and stone removal. Brief History - From Admission HPI 80-year-old female with a past medical history significant for cholecystectomy 8 years ago, recurrent CBD stones/obstruction requiring ERCPs/stenting with stent removal done in March [address] Covington and CBD stone fragments were removed at that time. Patient now presents with abdominal pain going on for about 3 weeks which increased in severity over the last 3 days more so in the right upper quadrant along with nausea vomiting. Patient appeared jaundiced in the ER and was noted to have elevated LFTs and was hypotensive with systolic blood pressure in the 80s. She received 3 L of normal saline bolus and was started on Levophed for pressor support after a right IJ central line was placed by ER physician. She was diagnosed to be septic most likely secondary to cholangitis. She did have an elevated lipase as well. Patient was accepted for admission by critical care medicine service. When I came to evaluate patient around 6:15 PM she was laying in the ER stretcher complaining of significant abdominal pain 10 out of 10 in intensity. She had not received any pain medication so far. She had finished her third liter of normal saline and was on Levophed 2 mics per minute. Levaquin infusion was just getting completed and Flagyl infusion was going to be started next. I ordered fentanyl 50 mics IV started with which she had some relief of her abdominal pain. She has been having bowel movements according to her which are brown in color with no fresh blood or melena noted. History PFSH Past Medical History Depression: Yes Heart Rhythm Problems: Yes (HEART SKIPS) Cancer: No Cardiovascular Problems: No High Cholesterol: Yes Diabetes: Yes Endocrine: Yes Genitourinary: No Hepatitis: No Hiatal Hernia: No Immune Disorder: No Musculoskeletal: No Neurologic: No Psychiatric: No Reproductive: No Respiratory: No Thyroid Disease: No GI/Liver: CBD stones status post multiple ERCPs with stenting and stone removal last one being in March 2016 when her CBD stent was removed and the sweep was performed for a filling defect with removal of CBD stone fragments by Dr. Covington Past Surgical History Abdominal Surgery: Yes (APPENDECTOMY, GALLBLADDER) AICD: No Appendectomy: Yes Body Medical Devices: right port (not present currently) Cardiac Surgery: No Cholecystectomy: Yes Ear Surgery: No Endocrine Surgery: No Eye Surgery: No Genitourinary Surgery: No Gynecologic Surgery: Yes (HYSTERECTOMY) Hysterectomy: Yes Joint Replacement: No Oral Surgery: No Pacemaker: No Social History Alcohol Use: No Tobacco Use: No Substance Use: No Allergies-Medications Allergies-Medications (Allergen,Severity, Reaction): Coded Allergies: Penicillin (Verified Allergy, Mild, 08/11/16) Reported Meds & Prescriptions Reported Meds & Active Scripts Active Reported Tramadol (Tramadol HCl) 50 Mg Tab 50 Mg PO Q8H PRN Synthroid (Levothyroxine Sodium) 75 Mcg Tab 75 Mcg PO DAILY Omeprazole 20 Mg Tab 20 Mg PO DAILY Metformin (Metformin HCl) 1,000 Mg Tab 1,000 Mg PO BIDPC With meals Magnesium Oxide 500 Mg Tab 1,000 Mg PO BID Lisinopril 5 Mg Tab 5 Mg PO DAILY Levemir Inj (Insulin Detemir) 1,000 unit/ 10 ML Vial 10 Units SQ HS Do not mix with any other Insulin. Atorvastatin (Atorvastatin Calcium) 20 Mg Tab 20 Mg PO HS Atenolol 25 Mg Tab 12.5 Mg PO DAILY Aspirin 81 Mg Tabdr 81 Mg PO DAILY ROS Review of Systems General / Constitutional: Positive: Chills, No: Fever Eyes: No: Visual changes HENT: No: Headaches Cardiovascular: No: Chest Pain or Discomfort Respiratory: No: Shortness of Breath Gastrointestinal: Positive: Nausea, Abdominal Pain Genitourinary: No: Dysuria Musculoskeletal: No: Pain Skin: No Rash Neurologic: No: Weakness Psychiatric: No: Depression Endocrine: No: Polydipsia Hematologic/Lymphatic: No: Easy Bruising CBC/BMP: 08/14/16 0345 08/14/16 1700 Significant Findings Laboratory Tests Test 08/13/16 08/14/16 08/14/16 08/14/16 03:30 03:45 12:23 17:00 White Blood Count 12.2 TH/MM3 (4.0-11.0) Red Blood Count 3.19 MIL/MM3 3.19 MIL/MM3 (4.00-5.30) (4.00-5.30) Hemoglobin 9.3 GM/DL 9.4 GM/DL (11.6-15.3) (11.6-15.3) Hematocrit 27.2 % 27.4 % (35.0-46.0) (35.0-46.0) Platelet Count 108 TH/MM3 123 TH/MM3 (150-450) (150-450) Neutrophils (%) (Auto) 87.5 % (16.0-70.0) Lymphocytes (%) (Auto) 5.4 % (9.0-44.0) Neutrophils # (Auto) 10.7 TH/MM3 (1.8-7.7) Lymphocytes # (Auto) 0.7 TH/MM3 (1.0-4.8) Neutrophils % (Manual) 75 % (16-70) Band Neutrophils % 19 % (0-6) Lymphocytes % 2 % (9-44) Neutrophils # (Manual) 11.5 TH/MM3 (1.8-7.7) Toxic Vacuolation PRESENT (NONE SEEN) Dohle Bodies PRESENT (NONE SEEN) Platelet Estimate LOW (NORMAL) [place] Cells 1+ (NORMAL) Chloride Level 109 MEQ/L 109 MEQ/L (98-107) (98-107) Carbon Dioxide Level 18.9 MEQ/L (21.0-32.0) Blood Urea Nitrogen 29 MG/DL (7-18) 19 MG/DL (7-18) Creatinine 1.14 MG/DL (0.50-1.00) Estimat Glomerular Filtration 46 ML/MIN (>89) 59 ML/MIN (>89) Rate Calcium Level 6.4 MG/DL 7.3 MG/DL (8.5-10.1) (8.5-10.1) Protein Corrected Calcium 7.5 MG/DL (8.5-10.1) Magnesium Level 1.0 MG/DL (1.5-2.5) Alanine Aminotransferase 90 U/L (10-53) (ALT/SGPT) Alkaline Phosphatase 141 U/L (45-117) Total Protein 4.8 GM/DL 4.8 GM/DL (6.4-8.2) (6.4-8.2) Albumin 1.8 GM/DL (3.4-5.0) Potassium Level 3.2 MEQ/L (3.5-5.1) Phosphorus Level 1.3 MG/DL (2.5-4.9) Troponin I 0.16 NG/ML 0.31 NG/ML 0.48 NG/ML (0.02-0.05) (0.02-0.05) (0.02-0.05) Imaging Last Impressions Abdomen X-Ray 08/14/16 0600 Signed Impressions: Service Date/Time: Sunday, August 14, 2016 03:49 - CONCLUSION: Mild gaseous distention of multiple bowel loops, unchanged. Renzo Blair MD Abdomen/Pelvis CT 08/11/16 1513 Signed Impressions: Service Date/Time: Thursday, August 11, 2016 16:15 - CONCLUSION: Mild mural thickening of the colon especially on the right side most characteristic of a mild colitis. Small amount of free fluid around the liver. No free air. Sahil Faria MD GI Procedure 08/11/16 0000 Signed Impressions: Service Date/Time: Thursday, August 11, 2016 20:55 - CONCLUSION: ERCP as above. Sahil Faria MD Chest X-Ray 08/11/16 0000 Signed Impressions: Service Date/Time: Thursday, August 11, 2016 17:12 - CONCLUSION: 1. Minimal basilar atelectasis. No effusion or pneumothorax. Sahil Faria MD PE at Discharge GENERAL: Well-nourished, well-developed elderly female . Hard of hearing in no apparent distress SKIN: Focused skin assessment reveals no rash and nodules. Multiple ecchymosis areas on arms and legs. HEAD: Atraumatic. Normocephalic. EYES: Pupils equal and round. Positive scleral icterus. No injection or drainage. ENT: No nasal bleeding or discharge. Mucous membranes pink and moist. NECK: Trachea midline. No JVD. CARDIOVASCULAR: Regular rate and rhythm. No murmur appreciated. RESPIRATORY: No accessory muscle use. Clear to auscultation. Breath sounds equal bilaterally. GASTROINTESTINAL: Abdomen soft. Patient has a mild tenderness in the lower abdomen without guarding. MUSCULOSKELETAL: No obvious deformities. No clubbing. No cyanosis. No edema. NEUROLOGICAL: Awake and alert. No obvious cranial nerve deficits. Motor grossly within normal limits. Normal speech. PSYCHIATRIC: Appropriate mood and affect; insight and judgment normal. Hospital Course wine specialist notes: 80-year-old female with a past medical history significant for cholecystectomy 8 years ago, recurrent CBD stones/obstruction requiring ERCPs/stenting with stent removal done in March [address] Covington and CBD stone fragments were removed at that time. Patient now presents with abdominal pain going on for about 3 weeks which increased in severity over the last 3 days more so in the right upper quadrant along with nausea vomiting. Patient appeared jaundiced in the ER and was noted to have elevated LFTs and was hypotensive with systolic blood pressure in the 80s. She received 3 L of normal saline bolus and was started on Levophed for pressor support after a right IJ central line was placed by ER physician. She was diagnosed to be septic most likely secondary to cholangitis. She did have an elevated lipase as well. Patient was accepted for admission by critical care medicine service. When I came to evaluate patient around 6:15 PM she was laying in the ER stretcher complaining of significant abdominal pain 10 out of 10 in intensity. She had not received any pain medication so far. She had finished her third liter of normal saline and was on Levophed 2 mics per minute. Levaquin infusion was just getting completed and Flagyl infusion was going to be started next. I ordered fentanyl 50 mics IV started with which she had some relief of her abdominal pain. She has been having bowel movements according to her which are brown in color with no fresh blood or melena noted. 08/12: Afebrile.The patient is status post ERCP with sphincterotomy and stone removal last evening and stent placement. Biopsy also obtained for thickened ampulla of Vater to rule out malignant process. Patient's pain well to control this a.m. reports it is 08/12. 08/13: Tmax 97.8. No acute events overnight. Patient's diet was advanced to clear liquids yesterday tolerating it. Leukocytosis resolving ID following Dr. Post. Lipase levels normalized this a.m. Hospitalist Notes: 08/14: Seen in her bedroom, in the presence of her Mr. Miguel Angel Olvera no complaint, no nausea, vomit or diarrhea, discussed also with nurse Miss Teague continue electrolyte replacement and following. 08/15: Status Post photo specialist consult by Doctor Chowdhury and recommended with Diagnosis of Mild elevation of Troponin and Atypical Chest pain most likely secondary to recent septic shock and Hypotension and need for pressor therapy, Mild T wave inversions anteriorly which may be non specific ID specialist following, Sepsis clinically improved, Leukocytosis and Cholangitis resolving, Diarrhea antibiotic associated, recommended to continue Flagyl Check stool for C Diff, Okay to Discharge Oral antibiotics Levaquin or Flagyl if tolerates by mouth, anticipate up to 14 days total antibiotic time. Today seen by ID specialist Doctor Dominique recommended to Discontinue Central line, DIA Ludwig, Continue Flagyl by mouth for another 14 days and Levaquin to start for 14 days, patient do not want to wait in the Hospital wants to be released now and refuse any management at this time, her in the room will discharge home on [facility] and follow as outpatient by PCP. No Nausea, vomit or diarrhea. Assessment and Plan 1. Intractable Abdominal pain Improved. 2. Cholangitis/Choledocholithiasis status post ERCP with Sphincterotomy and stone removal, stent placement History of CBD stones/obstruction status post previous ERCP and stenting with stent removal in March 2016 GI specialist following. stable. 3. Septic shock. Hydration given in ER and Intensive Care Unit, vasopressor given Levophed, ID specialist following on Cefepime and Flagyl, Leukocytosis trending down. recommended by ID specialist to continue Flagyl and Levaquin for 14 days more at home. 4. Acute Pancreatitis probably secondary to CBD stones Improved 5. Possible mild colitis in the ascending Colon followed by GI specialist continue antibiotics. 6. DM II continue sliding scale. controlled. 7. Acute Kidney Injury Improved. 8. Hypothyroidism to continue Hormonal replacement 9. electrolyte derangement replaced Discussed with Patient and her Mr. Miguel Angel Olvera in the room, also nurse Miss Brink, all questions answered to the best of my abilities, the patient is upset and wants to leave the Hospital at this time, do not want to wait I agree will continue antibiotics for 14 days and discharge Home on [facility] for Physical Therapy and skilled nurse. Prophylaxis: PPI/SCDs. SQ heparin 5000u q 12 hr Discharge Planning Discharge Home on [facility] for PT and Skilled nurse. Pt Condition on Discharge: Good Discharge Disposition: Disch w/ Home Health Serv Discharge Time: > 30 minutes Discharge Instructions DIET: Follow Instructions for: Heart Healthy Diet, Diabetic Diet Activities you can perform: Regular-No Restrictions Ariel Quijano MD Aug 15, 2016 15:54
--- NOTE | 2016-08-15 21:01 | EKG ---
Date Performed: 08/14/2016 Time Performed: 15:55:43 PTAGE: 80 years EKG: Sinus rhythm MODERATE T-WAVE ABNORMALITY, CONSIDER ANTERIOR ISCHEMIA ABNORMAL ECG PREVIOUS TRACING : 08/14/2016 09.24 Compared to prior tracing no significant change DOCTOR: Mahesh Cormier Interpretating Date/Time 08/15/2016 21:00:55
--- NOTE | 2016-08-16 09:48 | HHI.FF ---
Face to Face Verification Diagnosis: (1) Acute cholangitis due to calculus of bile duct with obstruction (2) Septic shock (3) Hypotension Physical Therapy Order: Evaluate and Treat, Improve ambulation, Strength and gait training Home Health Nursing Order: Medical education Signs/symptoms of disease process Medication education-adverse effect Nursing assessment with vital signs I have seen patient Alpa Steiner on 08/16/16. My clinical findings support the need for the requested home health care services because: Ltd mobility - disease progression Deconditioned w/ increased weakness Limited ability to care for self I certify that my clinical findings support that this patient is homebound because: Unsafe to leave home unassisted Semaj Banks DO Aug 16, 2016 09:48
== END 2016-08-15 17:15 | disposition home or self-care (01) | DRG 871 ==
LOC: NEPE 14:43 → NEDA 17:15 → HIMW 22:20
PROVIDERS: ADMIT Internal Medicine; ATTEND Internal Medicine
PROC: 0FC98ZZ Extirpation of Matter from Common Bile Duct, Via Natural or Artificial Opening Endoscopic (ICD-10-PCS; 2016-08-11)
PROC: BF111ZZ Fluoroscopy of Biliary and Pancreatic Ducts using Low Osmolar Contrast (ICD-10-PCS; 2016-08-11)
PROC: 0F798DZ Dilation of Common Bile Duct with Intraluminal Device, Via Natural or Artificial Opening Endoscopic (ICD-10-PCS; principal; 2016-08-11 20:30)
DX: A41.9 Sepsis, unspecified organism (principal); K85.90 Acute pancreatitis without necrosis or infection, unspecified; K80.33 Calculus of bile duct with acute cholangitis with obstruction; R65.21 Severe sepsis with septic shock; N17.9 Acute kidney failure, unspecified; E87.1 Hypo-osmolality and hyponatremia; E83.42 Hypomagnesemia; E11.9 Type 2 diabetes mellitus without complications; E87.6 Hypokalemia; Z88.0 Allergy status to penicillin; H91.90 Unspecified hearing loss, unspecified ear; Z79.84 Long term (current) use of oral hypoglycemic drugs; E78.00 Pure hypercholesterolemia, unspecified; F32.9 Major depressive disorder, single episode, unspecified; Z90.49 Acquired absence of other specified parts of digestive tract; R00.0 Tachycardia, unspecified; E78.5 Hyperlipidemia, unspecified; R07.89 Other chest pain; K52.9 Noninfective gastroenteritis and colitis, unspecified; E03.9 Hypothyroidism, unspecified; R06.2 Wheezing; I10 Essential (primary) hypertension; Z85.72 Personal history of non-Hodgkin lymphomas; R74.8 Abnormal levels of other serum enzymes
CPT/HCPCS: 36556; 71010; 74000; 74176; 74330; 80048; 80053; 81001; 82550; 82948; 82977; 83605; 83690; 83735; 84100; 84132; 84155; 84484; 85007; 85027; 85610; 85730; 87040; 87086; 87205; 87328; 87329; 87493; 87506; 87641; 88305; 93005; 93306; 94150; 96361; 96374; 99292; C1769; C2625; C9113; J0692; J1170; J1644; J1956; J2270; J2370; J2405; J2765; J3010; J3370; J3475; J7030; J7040; J7050

== ENCOUNTER → 2016-10-10 | Outpatient (CLI) | payer OTHER ==
[~2016-10-10] VITALS: Ht 160 cm; Wt 60.7 kg
[~2016-10-10] MED LIST changes: -ATEN25TA PO; +CHLORHEXIDINE GLUCONATE 2 % 1 PACK (2 CLOTHS) TOPICAL PRN; +DO NOT ADM ANY ANTICOAGULANT DRUGS PRN; +FLUMAZENIL 0.5 MG/5 ML VIAL IV PRN; +INSULIN HUMAN REGULAR 1,000 UNITS/10 ML VIAL SQ PRN; +LACTATED RINGER'S 1000 ML IV PRN; +LEVA500T PO; +METO25TA3 PO; +METOPROLOL TARTRATE 25 MG TAB PO PRN; +METR-1 PO; +NALOXONE HCL 0.4 MG/ML AMP IV PRN; +NEOSTIGMINE 3 MG/3 ML SYR IV ONE; -ONDANSETRON HCL 4 MG/2 ML VIAL IV PUSH ONE; -PHENYLEPH/NS 1000 MCG/10 ML SYR IV ONE; +POVIDONE IODINE 5% (ANTISEPSIS KIT) 4 APPLICATIONS EACH NARE PRN; +PROPOFOL 200 MG/20 ML AMP IV ONE; +PROT40TA PO; +SODIUM CHLORID 0.9% 500 ML IV PRN; +SYMB160A INH
[2016-10-10 12:15] VITALS: BP 166/74; PULSE 70; RESP 16; TEMP 98.5; O2SAT 98
--- NOTE | 2016-10-10 14:15 | PD.PROCEDR ---
GI Procedure PROCEDURE PERFORMED ERCP with stent removal and extension of sphincterotomy and a balloon sweep INDICATION FOR PROCEDURE Choledocholithiasis PROCEDURE: The procedure, risks and benefits were discussed with Ms. Olvera and informed consent was obtained. Anesthesia sedated her with Diprivan. She was placed in the left lateral decubitus position. ERCP: Patient was placed in a prone position. The Pentax videoscope was introduced through the oropharynx and advanced to the second portion of the duodenum where the ampula was identified. FINDINGS: The ampulla was identified with a stent protruding this was removed using snare technique the scope was then repositioned and we were able to obtain cannulation of the common bile duct appeared to be dilated in its proximal portions the intrahepatics were unremarkable the distal portion was of normal caliber and we suspected filling defects at this point the sphincterotomy was extended by at least 1 cm then using a 15 mm and subsequently 12 mm balloons we were able to clean sweep the common bile duct a small stone was seen coming out otherwise, bile duct was unremarkable and within normal limits ESTIMATED BLOOD LOSS: None SPECIMENS REMOVED: None COMPLICATIONS: None IMPRESSION: Choledocholithiasis PLAN: Patient follow-up in clinic in 3-4 weeks CBC and a CMP prior office visit Bay Patel MD Oct 10, 2016 14:15
[2016-10-10 15:00] VITALS: BP 134/61; TEMP 97.8
[2016-10-10 15:05] VITALS: PULSE 61; RESP 16; O2SAT 96
--- NOTE | 2016-10-10 17:17 | RADRPT ---
EXAM DATE/TIME: 10/10/2016 13:37 [facility] COMPARISON: ABDOMEN KUB ONLY, August 14, 2016, 3:49. INDICATIONS : Choledocholithiasis. Stent removal/exchange. FLUORO TIME: 3.4 minutes IMAGE COUNT: 4 CONTRAST: Instilled by Ordering Physician MEDICAL HISTORY : Hypertension. Gastroesophageal reflux disease. Diabetes. SURGICAL HISTORY : Cholecystectomy. Appendectomy. Hysterectomy. ENCOUNTER: Subsequent ACUITY: 1 day PAIN SCORE: Non-responsive. LOCATION: Right upper quadrant abdomen FINDINGS: ERCP imaging demonstrates removal of the patient's internal biliary stent. The intrahepatic ducts are mildly dilated. The common duct is mildly dilated. CONCLUSION: ERCP as above. Lobo Bhagat MD on October 10, 2016 at 17:15 Board Certified Radiologist. This report was verified electronically.
== END ==
LOC: HSDC 11:21
PROVIDERS: ATTEND Internal Medicine Gastroenterology
DX: K80.50 Calculus of bile duct without cholangitis or cholecystitis without obstruction (principal)
CPT/HCPCS: 00740; 43262; 43275; 74330; J2710; J7120

== ENCOUNTER 2017-02-18 08:25 | Emergency (ER) | payer OTHER ==
[~2017-02-18] VITALS: Ht 160 cm; Wt 64.0 kg
[~2017-02-18 08:25] MED LIST changes: -ASPI1TAB69 PO; -CHLORHEXIDINE GLUCONATE 2 % 1 PACK (2 CLOTHS) TOPICAL PRN; -DO NOT ADM ANY ANTICOAGULANT DRUGS PRN; -FLUMAZENIL 0.5 MG/5 ML VIAL IV PRN; -INSULIN HUMAN REGULAR 1,000 UNITS/10 ML VIAL SQ PRN; -LACTATED RINGER'S 1000 ML IV PRN; -LEVA500T PO; -LEVEMIR SQ; -METO25TA3 PO; -METOPROLOL TARTRATE 25 MG TAB PO PRN; -METR-1 PO; -NALOXONE HCL 0.4 MG/ML AMP IV PRN; -NEOSTIGMINE 3 MG/3 ML SYR IV ONE; -POVIDONE IODINE 5% (ANTISEPSIS KIT) 4 APPLICATIONS EACH NARE PRN; -PROPOFOL 200 MG/20 ML AMP IV ONE; -PROT40TA PO; -SODIUM CHLORID 0.9% 500 ML IV PRN
[2017-02-18 08:51] VITALS: BP 115/56; PULSE 79; RESP 16; TEMP 98.7; O2SAT 96
[2017-02-18] MEDS ORDERED: DIPHTH/TETANUS/ACEL PERTUSSIS (BOOSTER) 0.5 ML VIAL/PFS IM ONE (09:00)
--- NOTE | 2017-02-18 09:08 | PD ---
HPI Chief Complaint: Injury Time Seen by Provider: 08:55 Travel History International Travel<30 days: No Contact w/Intl Traveler<30days: No Traveled to known affect area: No History of Present Illness HPI Patient is an 81-year-old female who presents to emergency room with complaints of left-sided wrist and forearm pain. Patient reports that on , she tripped and fell outside, she hit her face on the ground, reports that she caught her fall with her left hand. Patient reports that she thought that she had a wrist sprain and put her wrist in a splint, patient reports that she continues to have pain to her left wrist. Patient denies any headache or dizziness at this time, she does have bruising to her face. Patient reports that she currently is not on any anticoagulants. Patient denies any neck pain, denies any chest pain or shortness of breath. She also reports abrasions to bilateral knees, reports no difficulty with ambulation. PFSH Past Medical History Hx Anticoagulant Therapy: No Depression: Yes Heart Rhythm Problems: Yes (HEART SKIPS) Cancer: No Cardiovascular Problems: No High Cholesterol: Yes Diabetes: Yes Endocrine: Yes Genitourinary: No Hepatitis: No Hiatal Hernia: No Immune Disorder: No Musculoskeletal: No Neurologic: No Psychiatric: No Reproductive: No Respiratory: No Thyroid Disease: No Past Surgical History Abdominal Surgery: Yes (APPENDECTOMY, GALLBLADDER) AICD: No Appendectomy: Yes Body Medical Devices: RIGHT PORT Cardiac Surgery: No Cholecystectomy: Yes Ear Surgery: No Endocrine Surgery: No Eye Surgery: No Genitourinary Surgery: No Gynecologic Surgery: Yes (HYSTERECTOMY) Hysterectomy: Yes Joint Replacement: No Oral Surgery: No Pacemaker: No Social History Alcohol Use: No Tobacco Use: No Substance Use: No Allergies-Medications (Allergen,Severity, Reaction): Coded Allergies: penicillin G (Unverified Allergy, Mild, RASH, 02/18/17) Reported Meds & Prescriptions Reported Meds & Active Scripts Active Symbicort Inh (Budesonide/Formoterol Fumarate) 160-4.5 Mcg/Act Aero 1 Puff INH Q12HR Reported Tramadol (Tramadol HCl) 50 Mg Tab 50 Mg PO Q8H PRN Synthroid (Levothyroxine Sodium) 75 Mcg Tab 75 Mcg PO DAILY Omeprazole 20 Mg Tab 20 Mg PO DAILY Metformin (Metformin HCl) 1,000 Mg Tab 1,000 Mg PO BIDPC With meals Magnesium Oxide 500 Mg Tab 1,000 Mg PO BID Lisinopril 5 Mg Tab 5 Mg PO DAILY Atorvastatin (Atorvastatin Calcium) 20 Mg Tab 20 Mg PO HS Review of Systems General / Constitutional: No: Fever Eyes: No: Visual changes HENT: No: Headaches, Vertigo, Lightheadedness, Neck Pain Cardiovascular: No: Chest Pain or Discomfort Respiratory: No: Shortness of Breath Gastrointestinal: No: Abdominal Pain Genitourinary: No: Dysuria Musculoskeletal: Positive: Pain (left wrist pain) Skin: No Rash Neurologic: No: Weakness Psychiatric: No: Depression Endocrine: No: Polydipsia Hematologic/Lymphatic: No: Easy Bruising Physical Exam Narrative GENERAL: mild distress SKIN: Focused skin assessment warm/dry. HEAD: Normocephalic. Patient with left sided periorbital ecchymosis, patient with ecchymosis under chin EYES: Pupils equal and round. No scleral icterus. No injection or drainage. ENT: No nasal bleeding or discharge. Mucous membranes pink and moist. NECK: Trachea midline. No JVD. CARDIOVASCULAR: Regular rate and rhythm. No murmur appreciated. RESPIRATORY: No accessory muscle use. Clear to auscultation. Breath sounds equal bilaterally. GASTROINTESTINAL: Abdomen soft, non-tender, nondistended. Hepatic and splenic margins not palpable. MUSCULOSKELETAL: No obvious deformities. No clubbing. No cyanosis. No edema. Patient with abrasions to bilateral knees, no obvious deformities, patient ambulating in the emergency with normal gait. RUE: normal exam LUE: No obvious deformities, pulses intact, neurovascular intact, patient with tenderness to the distal forearm as well as wrist and hand NEUROLOGICAL: Awake and alert. No obvious cranial nerve deficits. Motor grossly within normal limits. Normal speech. PSYCHIATRIC: Appropriate mood and affect; insight and judgment normal. Data Data Last Documented VS Vital Signs Date Time Temp Pulse Resp B/P (MAP) Pulse Ox O2 Delivery O2 Flow Rate FiO2 02/18/17 08:51 98.7 79 16 115/56 (75) [address] Brain W/O Iv Contrast(Rout) (02/18/17 08:59) Ct Cerv Spine W/O Contrast (02/18/17 08:59) Ct Facial Bones W/O Iv Cont (02/18/17 08:59) Hand, Complete (Mmd3vzs) (02/18/17 ) Forearm (2vws) (02/18/17 ) [id number] (Booster) Inj (Boostrix (02/18/17 09:00) MDM Medical Decision Making Medical Screen Exam Complete: Yes Emergency Medical Condition: Yes Medical Record Reviewed: Yes Interpretation(s) Vital Signs Date Time Temp Pulse Resp B/P (MAP) Pulse Ox O2 Delivery O2 Flow Rate FiO2 02/18/17 08:51 98.7 79 16 115/56 (75) 96 Differential Diagnosis Differential includes ICH, facial bone fracture, forearm fracture Narrative Course 81-year-old female who presents to emergency room after mechanical fall on (5 days ago). She currently is not on any anticoagulants. Patient denies any loss of consciousness, denies headache or dizziness. Patient does have bruising to her face, CT of the head, facial bones and neck ordered. Patient complains of left-sided wrist pain. X-rays of the left forearm as well as left hand ordered. Plan to monitor patient. Last Impressions Maxillofacial CT 02/18/1759 Signed Impressions: Service Date/Time: Saturday, February 18, 2017 09:42 - CONCLUSION: 1. No acute bony fractures. 2. Chronic sinus disease in the left sphenoid and left maxillary sinuses. Mario Trejo MD Head CT 02/18/1759 Signed Impressions: Service Date/Time: Saturday, February 18, 2017 09:42 - CONCLUSION: Normal examination for a patient of this age. Mario Trejo MD Cervical Spine CT 02/18/17 0859 Signed Impressions: Service Date/Time: Saturday, February 18, 2017 09:42 - CONCLUSION: 1. No acute bony fracture. 2. Primary bony degenerative changes involving the mid to lower cervical spine with disc space narrowing at C4-5. 3. Broad-based bulging with disc osteophyte complex at C3-4 and C4-5. 4. Focal central bulging at C5-6. Mario Trejo MD Radius/Ulna X-Ray 02/18/17 0000 Signed Impressions: Service Date/Time: Saturday, February 18, 2017 09:27 - CONCLUSION: 1. No acute abnormality. 2. Osteopenia. Dallas Don Jr., MD Hand X-Ray 02/18/17 0000 Signed Impressions: Service Date/Time: Saturday, February 18, 2017 09:27 - CONCLUSION: No acute abnormality. Osteopenia and osteoarthritis. Dallas Don Jr., MD I reviewed all studies with patient in detail including all findings.. patient will follow up with pcp and will return to ER as needed. Encouraged rest, ice, elevation. Diagnosis Primary Impression: Fall Qualified Codes: W19.XXXA - Unspecified fall, initial encounter Additional Impressions: Left wrist sprain Qualified Codes: S63.502A - Unspecified sprain of left wrist, initial encounter Facial bruising Qualified Codes: S00.83XA - Contusion of other part of head, initial encounter Traumatic ecchymosis of face Qualified Codes: S00.83XA - Contusion of other part of head, initial encounter Patient Instructions: General Instructions Additional Instructions: Please provide patient with a copy of her studies at discharge Return to ER as needed Please follow up with your primary care doctor Return to ER if symptoms worsen or progress Apply ice to wrist as well as splint Disposition: 01 DISCHARGE HOME Condition: Stable Aniyah Melo DO Feb 18, 2017 09:07
--- NOTE | 2017-02-18 09:55 | RADRPT ---
EXAM DATE/TIME: 02/18/2017 09:27 [facility] COMPARISON: No previous studies available for comparison. INDICATIONS : Left hand pain and swelling. Patient fell 6 days ago. MEDICAL HISTORY : None. SURGICAL HISTORY : None. ENCOUNTER: Initial ACUITY: 4 - 6 days PAIN SCORE: 4/10 LOCATION: Left hand. FINDINGS: 3 views of the left hand show diffuse osteopenia. No fracture or dislocation. No soft tissue swelling . Osteoarthritis involving the DIP joints of the first through fifth fingers. CONCLUSION: No acute abnormality. Osteopenia and osteoarthritis. Dallas Don Jr., MD on February 18, 2017 at 9:53 Board Certified Radiologist. This report was verified electronically.
--- NOTE | 2017-02-18 09:58 | RADRPT ---
EXAM DATE/TIME: 02/18/2017 09:27 [facility] COMPARISON: No previous studies available for comparison. INDICATIONS : Distal left forearm pain and swelling. Patient fell 6 days ago. MEDICAL HISTORY : None. SURGICAL HISTORY : None. ENCOUNTER: Initial ACUITY: 1 day PAIN SCORE: 4/10 LOCATION: Left distal forearm. FINDINGS: Two view examination of the left forearm demonstrates no evidence of fracture or dislocation. Bony m ineralization is reduced. The soft tissue structures are intact. CONCLUSION: 1. No acute abnormality. 2. Osteopenia. Dallas Don Jr., MD on February 18, 2017 at 9:55 Board Certified Radiologist. This report was verified electronically.
--- NOTE | 2017-02-18 10:01 | RADRPT ---
EXAM DATE/TIME: 02/18/2017 09:42 [facility] COMPARISON: No previous studies available for comparison. INDICATIONS : Tripped and fell yesterday. Left sided injury. RADIATION DOSE: 59.76 CTDIvol (mGy) MEDICAL HISTORY : Hypertension. Gastroesophageal reflux disease. Diabetes. SURGICAL HISTORY : Appendectomy. Cholecystectomy.Hysterectomy. ENCOUNTER: Initial ACUITY: 2 days PAIN SCALE: 5/10 LOCATION: Left cranial TECHNIQUE: Multiple contiguous axial images were obtained of the head. Using automated exposure control and adj ustment of the mA and/or kV according to patient size, radiation dose was kept as low as reasonably a chievable to obtain optimal diagnostic quality images. DICOM format image data is available electro nically for review and comparison. FINDINGS: CEREBRUM: The ventricles are normal for age. No evidence of midline shift, mass lesion, hemorrhage or acute in farction. No extra-axial fluid collections are seen. POSTERIOR FOSSA: The cerebellum and brainstem are intact. The 4th ventricle is midline. The cerebellopontine angle i s unremarkable. EXTRACRANIAL: The visualized portion of the orbits is intact. SKULL: The calvaria is intact. No evidence of skull fracture. CONCLUSION: Normal examination for a patient of this age. Mario Trejo MD on February 18, 2017 at 9:59 Board Certified Radiologist. This report was verified electronically.
--- NOTE | 2017-02-18 10:03 | RADRPT ---
EXAM DATE/TIME: 02/18/2017 09:42 [facility] COMPARISON: No previous studies available for comparison. INDICATIONS : Tripped and fell yesterday. Left sided injury. RADIATION DOSE: 26.58 CTDIvol (mGy) MEDICAL HISTORY : Hypertension. Gastroesophageal reflux disease. Diabetes. SURGICAL HISTORY : Appendectomy. Cholecystectomy.Hysterectomy. ENCOUNTER: Initial ACUITY: 2 days PAIN SCORE: 5/10 LOCATION: Left facial TECHNIQUE: Volumetric scanning of the facial bones was performed. Using automated exposure control and adjustme nt of the mA and/or kV according to patient size, radiation dose was kept as low as reasonably achiev able to obtain optimal diagnostic quality images. DICOM format image data is available electronicall y for review and comparison. FINDINGS: ORBITS: The orbital and infraorbital osseous structures are intact. The retroconal structures have a normal configuration. No radiopaque foreign bodies are seen. NASAL BONE: The nasal bone and maxillary spine are intact ZYGOMATIC ARCHES: Symmetric without evidence of fracture. SINUSES: There is chronic sinus disease in the left maxillary sinus. There is some chronic sinus disease in th e left sphenoid sinus. Otherwise, the rest of the paranasal sinuses are clear. No air-fluid levels ar e demonstrated. NASAL CAVITY: Nasal septal deviation to the right. SOFT TISSUES: No radiopaque foreign bodies seen. No soft-tissue swelling is seen. INTRACRANIAL: No intracranial air seen. CRIBIFORM PLATE: Grossly intact. CONCLUSION: 1. No acute bony fractures. 2. Chronic sinus disease in the left sphenoid and left maxillary sinuses. Mario Trejo MD on February 18, 2017 at 10:00 Board Certified Radiologist. This report was verified electronically.
--- NOTE | 2017-02-18 10:07 | RADRPT ---
EXAM DATE/TIME: 02/18/2017 09:42 [facility] COMPARISON: No previous studies available for comparison. INDICATIONS : Tripped and fell yesterday. Left sided injury. RADIATION DOSE: 25.61 CTDIvol (mGy) MEDICAL HISTORY : Hypertension. Gastroesophageal reflux disease. Diabetes. SURGICAL HISTORY : Appendectomy. Cholecystectomy.Hysterectomy. ENCOUNTER: Initial ACUITY: 2 days PAIN SCALE: 5/10 LOCATION: Left neck TECHNIQUE: Volumetric scanning of the cervical spine was performed. Multiplanar reconstructions in the sagittal, coronal and oblique axial planes were performed. Using automated exposure control and adjustment o f the mA and/or kV according to patient size, radiation dose was kept as low as reasonably achievable to obtain optimal diagnostic quality images. DICOM format image data is available electronically f or review and comparison. FINDINGS: VERTEBRAE: There is diffuse bony degenerative changes involving the mid to lower cervical spine. There is disc s pace narrowing at C4-5. No acute bony fractures. ALIGNMENT: No evidence of subluxation. C2-C3: The bony spinal canal is normal in size. No evidence of disc bulge or herniation. The neural forami na are bilaterally patent. C3-C4: Broad-based bulging with disc osteophyte complex. The neural foramina are patent bilaterally. C4-C5: Broad-based bulging with disc osteophyte complex. The neural foramina are patent bilaterally. C5-C6: Mild central bulging. The neural foramina are patent bilaterally. C6-C7: The bony spinal canal is normal in size. No evidence of disc bulge or herniation. The neural forami na are bilaterally patent. C7-T1: The bony spinal canal is normal in size. No evidence of disc bulge or herniation. The neural forami na are bilaterally patent. CONCLUSION: 1. No acute bony fracture. 2. Primary bony degenerative changes involving the mid to lower cervical spine with disc space narrow ing at C4-5. 3. Broad-based bulging with disc osteophyte complex at C3-4 and C4-5. 4. Focal central bulging at C5-6. Mario Trejo MD on February 18, 2017 at 10:03 Board Certified Radiologist. This report was verified electronically.
== END 2017-02-18 10:31 | disposition home or self-care (01) ==
LOC: PHEFT 08:25
DX: S63.502A Unspecified sprain of left wrist, initial encounter (principal); S00.83XA Contusion of other part of head, initial encounter; M25.532 Pain in left wrist; W01.0XXA Fall on same level from slipping, tripping and stumbling without subsequent striking against object, initial encounter; F32.9 Major depressive disorder, single episode, unspecified; E78.5 Hyperlipidemia, unspecified; E11.9 Type 2 diabetes mellitus without complications; Z23 Encounter for immunization
CPT/HCPCS: 70450; 70486; 72125; 73090; 73130; 90471; 90715